=== PATIENT | female | born 1985 | race Caucasian/White ===

== ENCOUNTER → 2019-12-11 10:35 | Outpatient (BNVA) | payer MEDICAID, SELFPAY | PROVIDERS: Family Provider Family Medicine; PCP Family Medicine; Visit Provider Nurse Practitioner | DX: F33.1 Major depressive disorder, recurrent, moderate (principal); F41.1 Generalized anxiety disorder; F43.12 Post-traumatic stress disorder, chronic; G47.10 Hypersomnia, unspecified | CPT/HCPCS: 99214; 99215 ==

== ENCOUNTER → 2019-12-30 10:35 | Outpatient (BNVA) | payer MEDICAID, SELFPAY | PROVIDERS: Family Provider Family Medicine; PCP Family Medicine; Visit Provider Social Worker | DX: F33.1 Major depressive disorder, recurrent, moderate (principal); F41.1 Generalized anxiety disorder; F43.12 Post-traumatic stress disorder, chronic | CPT/HCPCS: 90834 ==

== ENCOUNTER 2019-12-30 12:01 | Inpatient (IN) | payer MEDICAID, SELFPAY ==
[2019-12-30 12:15] VITALS: BP 137/95; PULSE 102; RESP 20; TEMP 36.6; O2SAT 97; BMI 34.9
[2019-12-30 12:23] VITALS: O2SAT 98
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
--- NOTE | 2019-12-30 14:47 | PC.NURSE ---
psychiatrist (francesco) in room to evaluate pt
[2019-12-30 15:29] LABS: Basophils # 0.1 10^3/uL (0.0-0.1); Basophils % 0.4 %; Eosinophils # 0.1 10^3/uL (0.0-0.8); Eosinophils % 0.5 %; Hematocrit 48.7 % (37.0-47.0); Hemoglobin 15.5 g/dL (11.5-15.3); Lymphocytes # 2.8 10^3/uL (0.8-4.8); Lymphocytes % 19.7 %; Mean Corpuscular HGB Conc 31.8 g/dL (30.0-36.0); Mean Corpuscular Hemoglobin 26.9 pg (28.0-34.0); Mean Corpuscular Volume 84.4 fL (81-99); Mean Platelet Volume 9.8 fL (7.4-10.4); Monocytes # 0.6 10^3/uL (0.2-0.9); Monocytes % 4.1 %; Neutrophils # 10.6 10^3/uL (1.8-7.7); Neutrophils % 74.9 %; Nucleated Red Blood Cells % 0 %; Platelet Count 413 10^3/cmm (130-400); Red Blood Count 5.77 10^6/uL (4.1-5.3); Red Cell Distribution Width 15.5 % (12.1-15.1); White Blood Count 14.2 10^3/uL (4.0-10.0)
[2019-12-30 15:45] LABS: HCG Qualitative Urine. Negative (Negative)
[2019-12-30 15:46] LABS: Alanine Aminotransferase 21 U/L (0-33); Albumin Level 4.7 g/dL (3.5-5.2); Alkaline Phosphatase 82 IU/L (35-105); Anion Gap 16.5 (5-19); Aspartate Amino Transferase 24 U/L (0-32); Blood Urea Nitrogen 10 mg/dL (6-20); Calcium 10.6 mg/dL (8.5-10.5); Carbon Dioxide 28 mmol/L (22-29); Chloride 96 mmol/L (98-107); Globulin 4.1 g/dL (1.3-4.6); Glomerular Filtration Rate 62.7 mL/min (90-130); Glucose 138 mg/dL (74-109); Potassium 3.5 mmol/L (3.5-5.1); Sodium 137 mmol/L (136-145); Total Bilirubin 0.4 mg/dL (0.15-1.2); Total Protein 8.8 g/dL (6.6-8.7)
[2019-12-30 16:02] LABS: Acetaminophen < 5.0 ug/mL (10-30); Alcohol Level < 10 mg/dL (0-10); Salicylate < 0.3 mg/dL (3-10)
[2019-12-30 16:14] LABS: Amphetamines Screen Urine Negative (Negative); Barbiturates Screen Urine Negative (Negative); Benzodiazepines Screen Urine Negative (Negative); Cocaine Screen Urine Negative (Negative); Opiate Screen Urine Negative (Negative); PCP Screen Urine Negative (Negative); THC Screen Urine Negative (Negative)
[2019-12-30 16:23] VITALS: BP 134/92; PULSE 103; RESP 20; TEMP 36.8; O2SAT 97
[2019-12-30] MEDS: acetaminophen 325 mg Tablet 650 MG PO (17:42)
[2019-12-30] MEDS: trazodone 50 mg Tablet PO (21:01)
[2019-12-30 21:14] VITALS: RESP 18; O2SAT 96
[2019-12-30 21:16] VITALS: BP 118/77; PULSE 68; RESP 18; TEMP 36.5; O2SAT 97
[2019-12-31 00:59] VITALS: RESP 18; O2SAT 97
[2019-12-31 06:00] VITALS: BP 113/79; PULSE 78; RESP 19; TEMP 36.4; O2SAT 96
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
[2019-12-31 13:47] VITALS: BP 118/76; PULSE 82; RESP 18; TEMP 36.9; O2SAT 96
[2019-12-31] MEDS: lamoTRIgine 100 mg Tablet PO (17:44)
[2019-12-31] MEDS: ARIPiprazole 10 mg Tablet PO (17:44)
[2019-12-31] MEDS: fluoxetine 20 mg Capsule PO (20:33)
[2019-12-31] MEDS: trazodone 50 mg Tablet PO (20:33)
[2019-12-31 22:00] VITALS: BP 134/90; PULSE 76; RESP 19; TEMP 36.7; O2SAT 100
[2019-12-31 23:16] VITALS: RESP 19; O2SAT 98
[2020-01-01 06:00] VITALS: BP 125/85; PULSE 82; RESP 20; TEMP 36.7; O2SAT 99
[2020-01-01] MEDS: pantoprazole DR 40 mg Tablet PO (09:17)
[2020-01-01] MEDS: fluoxetine 20 mg Capsule PO ×2 (09:17→14:21)
[2020-01-01] MEDS: ARIPiprazole 10 mg Tablet PO (09:17)
[2020-01-01] MEDS: lamoTRIgine 100 mg Tablet PO (09:17)
[2020-01-01 14:00] VITALS: BP 131/82; PULSE 75; RESP 18; TEMP 36.7; O2SAT 98
--- NOTE | 2020-01-01 14:53 | P.DS_ITS ---
Diagnoses at Discharge Discharge Diagnosis (1) Depression: Status: Acute (2) Post-traumatic stress disorder, chronic: Status: Acute (3) Generalized anxiety disorder: Status: Acute (4) Major depressive disorder, recurrent, moderate: Status: Acute Reason for Visit Reason for Visit: Reason For Visit: DEPRESION Brief History: HPI NPU History of Present Illness Savana Grady is a 34 year old female who presented today after presenting to the emergency room with concerns that her medication wasn't working as well as she did like and some very limited thoughts to kill herself and thoughts to kill a person who was squatting on her property. She had been seen by providers at [facility] and/or talked on the phone with and was referred to the emergency room. She was transferred to the neuropsychiatric unit with a desire to make some changes in medication. We discussed the risks benefits and alternatives of increasing her Abilify which had been increased from 2 mg daily to 4 mg by mouth every morning, and she understood and agreed to proceed with an increase in the dose. Additionally she is calm to understand one of her major stressors is her . She was doing okay on the unit but then found herself very anxious in connection with him coming to visit. When that was derailed by some issues going on at home she felt immediately better. She reports a long history of marriage to this but struggles from difficulties with him being controlling per her report. She has been in treatment for years reporting that she isn't adherent to treatment but endorsing that she has times where she seems to need changes in the medication they occur and somewhat regular intervals and AV this is this time. We did discuss the fact that she was not on a higher dose of Abilify and so increasing to 10 mg does not constitute the medication becoming ineffective. She reports low mood, hopelessness, helplessness and worthlessness, not finding nayana in things she normally enjoys and lots of irritability. Psychiatric history: As above. Substance abuse history: She denies significant substance abuse issues. Family history: She endorses some issues in her biological family with mental health, she endorses some issues of addiction but denies any suicide completions or attempts that she is aware of. Developmental history: She denies any significant issues with her mother is or delivery of her. She reports The walk-in documented developmental milestones on time. She denies significant speech therapy, large or emotional support or special education classes. Psychosocial history: She reports that she has been to her current for some time but there've been multiple episodes where she is needed to get away. She endorses that some of this is related to his controlling nature. She reports that he can also be hyperreligious when it suits him. She reports that many times he will take issue with her drinking or doing something, but not feel it has any spiritual or righteous impact when he does it. She reports that they lived together some of the time and she retreats to another residence other times when his overbearing nature is overwhelming. Legal history: None reported. Hospital Course Hospital Course Savana presented to the emergency room reporting thoughts to kill herself and thus to kill a person who had been squatting in her garage. She was admitted to the neuro psych unit and quickly acclimated to the individual, group and milieu therapies provided. Her medications were continued and her Abilify was increased to 10 mg. She responded quite well to the changes. During hospitalization she had routine laboratory studies which were within normal limits except for a few outliers. Additionally she had a general medical evaluation which was also within normal limits and revealed no new acute processes. Discharge Summary At the time of discharge she denied all lethality, her mood and anxiety had improved, she denied any psychosis and endorsed the plan to follow-up with outpatient services to which she had been referred. She was evaluated and deemed to be absent credible lethality and she had gotten the maximum benefit from the inpatient hospitalization so she was discharged. Involuntary Hold Information 96 Hour Hold: 96 Hour Involuntary Admission: No Mental Status Exam MSE Comments: This is an obese white female with adequate dress, grooming and eye contact. No abnormal movements except for mild psychomotor retardation. Cooperative with exam in no acute distress. Speech was more normal rate and volume. Mood described as much better, affect congruent. Thought process organized. Thought content: Patient denied any suicidal or homicidal ideations, there are no delusions reported are noted, she denied any auditory or visual hallucinations. Attention and concentration were intact and memory appeared reliable but none were formally tested. She is alert and oriented ?3. Insight and judgment is fair and improving. Discharge Data Vitals: Last Vital Signs Temp 98.0 F 01/01/20 14:00 Pulse 75 01/01/20 14:00 Resp 18 01/01/20 14:00 BP 131/82 01/01/20 14:00 Pulse Ox 98 01/01/20 14:00 Discharge Plan Discharge Patient Disposition: Home, Self-Care Condition: Stable Prescriptions: Continued multivitamin [Daily Multi-Vitamin] Tablet 1 tab PO DAILY RF: 0 atorvastatin 10 mg tablet 10 mg PO DAILY RF: 0 hydrochlorothiazide 12.5 mg capsule 12.5 mg PO DAILY RF: 0 eplerenone 50 mg tablet 50 mg PO DAILY RF: 0 pantoprazole 40 mg tablet,delayed release (DR/EC) 40 mg PO DAILY RF: 0 lamotrigine [Lamictal] 100 mg tablet 100 mg PO BID Qty: 60 RF: 2 Discontinued aripiprazole [Abilify] 5 mg tablet 5 mg PO DAILY Qty: 30 RF: 2 No Action hydroxyzine HCl 25 mg tablet 25 mg PO TID PRN (Reason: anxiety) Qty: 90 RF: 1 fluoxetine [Prozac] 40 mg capsule 80 mg PO DAILY Qty: 60 RF: 1 aripiprazole 10 mg tablet 10 mg PO DAILY 30 Days Qty: 30 RF: 1 Discharge Orders: Discharge Order (Routine); Ordered 01/01/20 Ordered By: Colt Abreu Referrals: Gabby Ndiaye PMHNP [Staff Physician] - 03/04/20 11:30 am Deanna Ramirez MSW, REFRIGERATED CARGO CLERK [Referring] - 01/08/20 9:00 am Branden Staples MD [Primary Care Provider] - Discharge Diet: Regular Discharge Activity: Resume usual activity Patient Instructions: Stress (DC), Depression (DC) Activity Restrictions/Additional Instructions: Currently, you do have scheduled appointments at [facility] ([facility]). If you have any needs that come up before your scheduled appointments at [facility], you may go during the walk-in hours 7:30 a.m.-2:30 p.m. Monday through Monday at [facility]. [address] [address] A referral has been requested from the [facility] dental scheduler Pippa Campos for case management at [facility]. Be sure to check on that referral by January 08, if needed. Discharge Date/Time: 01/01/20 15:11 Discharge Attestations NPU Time Spent in Discharge Care*: less than 30 min Specific Discharge Activities: Specific discharge activities: educating patient, discussing with sample case porter/social workers/dc planners, documenting/other paperwork and evaluating patient/reviewing data Coding Level of Care Code Acute Byproducts Pump Operator for Sandra Fwd Diagnoses Depression F32.9 Post-traumatic stress disorder, chronic F43.12 Generalized anxiety disorder F41.1 Major depressive disorder, recurrent, moderate F33.1
[2020-01-01 14:55] VITALS: BP 131/82; PULSE 75; RESP 18; TEMP 36.7; O2SAT 98
== END 2020-01-01 15:11 | disposition home or self-care (01) | DRG 880 ==
LOC: NP 15:28 → ER 17:12
PROVIDERS: Admitting Provider Psychiatry & Neurology Psychiatry; Emergency Provider Emergency Medicine; Family Provider Family Medicine; PCP Family Medicine; Visit Provider Psychiatry & Neurology Psychiatry
DX: F41.1 Generalized anxiety disorder (principal); F33.1 Major depressive disorder, recurrent, moderate; G47.10 Hypersomnia, unspecified; F43.12 Post-traumatic stress disorder, chronic
CPT/HCPCS: 12345; 80053; 80307; 81025; 85025; 99284; A9270

== ENCOUNTER 2019-12-30 15:00 | Emergency (ER) | payer MEDICAID, SELFPAY | END 2019-12-30 15:56 | disposition admitted as inpatient to this hospital (09) | LOC: ER 01-16 10:02 | PROVIDERS: Emergency Provider Emergency Medicine; Family Provider Family Medicine; PCP Family Medicine | DX: F41.9 Anxiety disorder, unspecified (principal); F43.9 Reaction to severe stress, unspecified; F32.9 Major depressive disorder, single episode, unspecified; F43.10 Post-traumatic stress disorder, unspecified | CPT/HCPCS: 80053; 80307; 81025; 85025; 99284; 99285; A9270 ==

== ENCOUNTER → 2020-01-08 08:44 | Outpatient (BNVA) | payer MEDICAID, SELFPAY | PROVIDERS: Family Provider Family Medicine; PCP Family Medicine; Visit Provider Social Worker | DX: F33.1 Major depressive disorder, recurrent, moderate (principal); F41.1 Generalized anxiety disorder; F43.12 Post-traumatic stress disorder, chronic | CPT/HCPCS: 90834 ==

== ENCOUNTER → 2020-01-16 10:47 | Outpatient (BNVA) | payer MEDICAID, SELFPAY | PROVIDERS: Family Provider Family Medicine; PCP Family Medicine; Visit Provider Nurse Practitioner | DX: F33.1 Major depressive disorder, recurrent, moderate (principal); F41.1 Generalized anxiety disorder; F43.12 Post-traumatic stress disorder, chronic | CPT/HCPCS: 99214 ==

== ENCOUNTER → 2020-02-14 07:37 | Outpatient (BNVA) | payer MEDICAID, SELFPAY | PROVIDERS: Family Provider Family Medicine; PCP Family Medicine; Visit Provider Nurse Practitioner | DX: F43.12 Post-traumatic stress disorder, chronic (principal); F41.1 Generalized anxiety disorder; F33.1 Major depressive disorder, recurrent, moderate | CPT/HCPCS: 99214 ==

== ENCOUNTER 2020-02-14 11:29 | Outpatient (CLI) | payer MEDICAID, SELFPAY ==
[2020-02-14 11:55] LABS: Basophils # 0.1 10^3/uL (0.0-0.1); Basophils % 0.7 %; Eosinophils # 0.3 10^3/uL (0.0-0.8); Eosinophils % 3.2 %; Hematocrit 45.9 % (37.0-47.0); Hemoglobin 14.4 g/dL (11.5-15.3); Lymphocytes # 2.9 10^3/uL (0.8-4.8); Lymphocytes % 27.5 %; Mean Corpuscular HGB Conc 31.4 g/dL (30.0-36.0); Mean Corpuscular Volume 89.1 fL (81-99); Mean Platelet Volume 8.9 fL (7.4-10.4); Monocytes # 0.7 10^3/uL (0.2-0.9); Neutrophils # 6.3 10^3/uL (1.8-7.7); Neutrophils % 60.6 %; Nucleated Red Blood Cells % 0 %; Platelet Count 416 10^3/cmm (130-400); Red Blood Count 5.15 10^6/uL (4.1-5.3); Red Cell Distribution Width 15.8 % (12.1-15.1); White Blood Count 10.4 10^3/uL (4.0-10.0)
[2020-02-14 12:50] LABS: Folate Level 9.4 ng/mL (4.8-37.3)
[2020-02-14 12:51] LABS: Alanine Aminotransferase 24 U/L (0-33); Albumin Level 4.1 g/dL (3.5-5.2); Alkaline Phosphatase 57 IU/L (35-105); Anion Gap 12.5 (5-19); Aspartate Amino Transferase 16 U/L (0-32); Blood Urea Nitrogen 12 mg/dL (6-20); Carbon Dioxide 33 mmol/L (22-29); Chloride 95 mmol/L (98-107); Chol HDL Ratio 5.98 mg/dL (0.0-4.40); Cholesterol 299 mg/dL (0-200); Globulin 3.4 g/dL (1.3-4.6); Glomerular Filtration Rate 81.2 mL/min (90-130); Glucose 100 mg/dL (65-115); HDL Cholesterol 50 mg/dL (60-100); Iron 56 ug/dL (37-145); LDL Cholesterol Calculated 171 mg/dL (50-129); LDL HDL Ratio 3.42 RATIO (0.00-3.22); Magnesium 2.2 mg/dL (1.7-2.3); Osmolality Calculated 278 mOsm/kg (285-295); Percent Saturation 13.5 % (20-50); Phosphorus 3.6 mg/dL (2.5-4.5); Potassium 4.5 mmol/L (3.5-5.1); Sodium 136 mmol/L (136-145); Thyroid Stimulating Hormone 0.88 uIU/mL (0.27-4.20); Total Bilirubin 0.2 mg/dL (0.15-1.2); Total Iron Binding Capacity 412 mcg/dl; Total Protein 7.5 g/dL (6.6-8.7); Triglycerides 392 mg/dL (0-150); Unsaturated Iron Binding 356 ug/dL (112-347); Vitamin B12 582 pg/mL (232-1245)
[2020-02-14 13:06] LABS: Parathyroid Hormone 30.5 pg/mL (15-65)
[2020-02-14 13:07] LABS: Estmated Average Glucose 117; Hemoglobin A1C 5.7 % (4.0-6.0)
== END 2020-02-14 11:30 | disposition home or self-care (01) ==
LOC: LAB 11:32
PROVIDERS: Family Provider Family Medicine; PCP Family Medicine; Visit Provider Surgery
DX: E66.9 Obesity, unspecified (principal)
CPT/HCPCS: 36415; 80053; 80061; 82248; 82310; 82607; 82746; 83036; 83540; 83550; 83735; 83970; 84100; 84443; 85025

== ENCOUNTER → 2020-02-25 15:16 | Outpatient (BNVA) | payer MEDICAID, SELFPAY | PROVIDERS: Family Provider Family Medicine; PCP Family Medicine; Visit Provider Social Worker | DX: F43.12 Post-traumatic stress disorder, chronic (principal); F41.1 Generalized anxiety disorder; F33.1 Major depressive disorder, recurrent, moderate | CPT/HCPCS: 90832 ==

== ENCOUNTER → 2020-03-10 15:38 | Outpatient (BNVA) | payer MEDICAID, SELFPAY | PROVIDERS: Family Provider Family Medicine; PCP Family Medicine; Visit Provider Social Worker | DX: F33.1 Major depressive disorder, recurrent, moderate (principal); F41.1 Generalized anxiety disorder; F43.12 Post-traumatic stress disorder, chronic | CPT/HCPCS: 90834 ==

== ENCOUNTER → 2020-03-20 08:45 | Outpatient (BNVA) | payer MEDICAID, SELFPAY | PROVIDERS: Family Provider Family Medicine; PCP Family Medicine; Visit Provider Nurse Practitioner | DX: F33.1 Major depressive disorder, recurrent, moderate (principal); F41.1 Generalized anxiety disorder; F43.12 Post-traumatic stress disorder, chronic | CPT/HCPCS: 99213 ==

== ENCOUNTER → 2020-03-23 08:24 | Outpatient (BNVA) | payer MEDICAID, SELFPAY | PROVIDERS: Family Provider Family Medicine; PCP Family Medicine; Visit Provider Social Worker | DX: F33.1 Major depressive disorder, recurrent, moderate (principal); F41.1 Generalized anxiety disorder; F43.12 Post-traumatic stress disorder, chronic | CPT/HCPCS: 90834 ==

== ENCOUNTER → 2020-05-04 08:25 | Outpatient (BNVA) | payer MEDICAID, SELFPAY | PROVIDERS: Family Provider Family Medicine; PCP Family Medicine; Visit Provider Social Worker | DX: F32.9 Major depressive disorder, single episode, unspecified (principal); F43.12 Post-traumatic stress disorder, chronic; F41.1 Generalized anxiety disorder; F33.1 Major depressive disorder, recurrent, moderate | CPT/HCPCS: 90832; 90834 ==

== ENCOUNTER → 2020-05-11 07:34 | Outpatient (BNVA) | payer MEDICAID, SELFPAY | PROVIDERS: Family Provider Family Medicine; PCP Family Medicine; Visit Provider Nurse Practitioner | DX: F33.1 Major depressive disorder, recurrent, moderate (principal); F41.1 Generalized anxiety disorder; F43.12 Post-traumatic stress disorder, chronic | CPT/HCPCS: 99214 ==

== ENCOUNTER → 2020-06-15 08:04 | Outpatient (BNVA) | payer MEDICAID, SELFPAY | PROVIDERS: Family Provider Family Medicine; PCP Family Medicine; Visit Provider Counselor Professional | DX: F33.1 Major depressive disorder, recurrent, moderate (principal); F41.1 Generalized anxiety disorder; F43.12 Post-traumatic stress disorder, chronic | CPT/HCPCS: 90834 ==

== ENCOUNTER 2020-06-17 10:38 | Outpatient (CLI) | payer MEDICAID, SELFPAY ==
--- NOTE | 2020-06-17 10:42 | MM_ITS ---
WS: [id number] BILATERAL DIGITAL DIAGNOSTIC MAMMOGRAM MAMMOGRAPHY WITH CAD CLINICAL INFORMATION: PAINFUL LUMPY LT BREAST COMPARISON: None. TECHNIQUE: Bilateral CC, MLO, and ML views. FINDINGS: Fatty replaced breasts bilaterally. Punctate calcifications. Tiny lucent centered calcifications. No suspicious focal mass, asymmetry, calcifications, or architectural distortion. Ultrasound is pendi ng ULTRASOUND BREAST LEFT TECHNIQUE: Ultrasound left breast focused area of concern. CLINICAL INFORMATION: PAINFUL LUMPY LT BREAST COMPARISON: None. FINDINGS: Ultrasound left breast area of concern Ultrasound left breast 9-12:00 position. Normal underlying breast tissue. No lesions to target for bi opsy. No cystic or solid lesions. MM/[place] [id number] IMPRESSION: BI-RADS: 2-Benign FOLLOW UP: Age 38 Annual screening mammography age 38
== END 2020-06-17 10:39 | disposition home or self-care (01) ==
LOC: RADSHAW 10:40
PROVIDERS: PCP Family Medicine; Visit Provider Family Medicine
DX: N64.4 Mastodynia (principal); N63.20 Unspecified lump in the left breast, unspecified quadrant
CPT/HCPCS: 76642; 77066

== ENCOUNTER → 2020-06-24 07:35 | Outpatient (BNVA) | payer MEDICAID, SELFPAY | PROVIDERS: PCP Family Medicine; Visit Provider Nurse Practitioner | DX: F33.1 Major depressive disorder, recurrent, moderate (principal); F41.1 Generalized anxiety disorder; F43.12 Post-traumatic stress disorder, chronic | CPT/HCPCS: 99214 ==

== ENCOUNTER → 2020-07-22 07:50 | Outpatient (BNVA) | payer MEDICAID, SELFPAY | PROVIDERS: Family Provider Family Medicine; PCP Family Medicine; Visit Provider Nurse Practitioner | DX: F33.1 Major depressive disorder, recurrent, moderate (principal); F41.1 Generalized anxiety disorder; F43.12 Post-traumatic stress disorder, chronic | CPT/HCPCS: 99214 ==

== ENCOUNTER → 2020-07-27 08:20 | Outpatient (BNVA) | payer MEDICAID, SELFPAY | PROVIDERS: Family Provider Family Medicine; PCP Family Medicine; Visit Provider Counselor Professional | DX: F33.1 Major depressive disorder, recurrent, moderate (principal); F41.1 Generalized anxiety disorder; F43.12 Post-traumatic stress disorder, chronic; F60.3 Borderline personality disorder | CPT/HCPCS: 90834 ==

== ENCOUNTER 2020-08-06 06:54 | Outpatient (CLI) | payer MEDICAID, SELFPAY ==
--- NOTE | 2020-08-06 07:35 | US_ITS ---
WS: [id number] Complete ABDOMINAL ULTRASOUND HISTORY: CYST ON SPLEEN COMPARISON: 02/21/2017 Liver: 18.7 cm in length. Moderately enlarged liver with hepatic steatosis and coarsened echotexture. No mass or bile duct dilatation. Gallbladder: Normally distended with no gallstones, wall thickening or pericholecystic fluid. Gallbladder wall thickness: 0.2 cm. Pancreas: Tail of the pancreas is not visualized. Head and body are negative. CBD: 0.5 cm. Right kidney: 11.2 cm x 5.9 cm x 4.9 cm. No mass, cortical thickening or hydronephrosis. Left kidney: 11.2 cm x 5.4 cm x 5.6 cm. No mass, cortical thickening or hydronephrosis. Spleen: Normal size spleen. Abdominal aorta and IVC are within normal limits. No ascites. US/US abdomen complete* [id number] IMPRESSION: 1. Moderate hepatomegaly and hepatic steatosis, similar to prior studies. 2. Normal gallbladder.
== END 2020-08-06 06:55 | disposition home or self-care (01) ==
LOC: RAD 06:55
PROVIDERS: PCP Family Medicine; Visit Provider Surgery
DX: D73.4 Cyst of spleen (principal); R16.0 Hepatomegaly, not elsewhere classified; K76.0 Fatty (change of) liver, not elsewhere classified
CPT/HCPCS: 76700

== ENCOUNTER 2020-09-03 09:55 | Outpatient (CLI) | payer MEDICAID, SELFPAY ==
[2020-09-03 10:43] LABS: Basophils # 0.1 10^3/uL (0.0-0.1); Basophils % 0.5 %; Eosinophils # 0.1 10^3/uL (0.0-0.8); Eosinophils % 1.3 %; Hemoglobin 14.6 g/dL (11.5-15.3); Lymphocytes # 3.2 10^3/uL (0.8-4.8); Lymphocytes % 29.8 %; Mean Corpuscular HGB Conc 31.1 g/dL (30.0-36.0); Mean Corpuscular Hemoglobin 27.9 pg (28.0-34.0); Mean Corpuscular Volume 89.7 fL (81-99); Mean Platelet Volume 8.4 fL (7.4-10.4); Monocytes # 0.9 10^3/uL (0.2-0.9); Monocytes % 7.9 %; Neutrophils # 6.42 10^3/uL (1.8-7.7); Nucleated Red Blood Cells % 0 %; Platelet Count 379 10^3/cmm (130-400); Red Blood Count 5.24 10^6/uL (4.1-5.3); Red Cell Distribution Width 15.6 % (12.1-15.1); White Blood Count 10.7 10^3/uL (4.0-10.0)
[2020-09-03 11:23] LABS: Estmated Average Glucose 131; Hemoglobin A1C 6.2 % (4.0-6.0)
[2020-09-03 11:28] LABS: Folate Level 16.1 ng/mL (4.8-37.3)
[2020-09-03 11:32] LABS: Alanine Aminotransferase 24 U/L (0-33); Albumin Level 4.2 g/dL (3.5-5.2); Alkaline Phosphatase 39 IU/L (35-105); Anion Gap 14.7 (5-19); Aspartate Amino Transferase 30 U/L (0-32); Blood Urea Nitrogen 16 mg/dL (6-20); Calcium 9.4 mg/dL (8.5-10.5); Carbon Dioxide 26 mmol/L (22-29); Chloride 100 mmol/L (98-107); Globulin 3.3 g/dL (1.3-4.6); Glomerular Filtration Rate 94.2 mL/min (90-130); Glucose 88 mg/dL (65-115); Iron 63 ug/dL (37-145); Magnesium 2.1 mg/dL (1.7-2.3); Osmolality Calculated 283 mOsm/kg (285-295); Phosphorus 4.3 mg/dL (2.5-4.5); Potassium 4.7 mmol/L (3.5-5.1); Sodium 136 mmol/L (136-145); Thyroid Stimulating Hormone 0.87 uIU/mL (0.27-4.20); Total Bilirubin 0.2 mg/dL (0.15-1.2); Total Protein 7.5 g/dL (6.6-8.7); Vitamin B12 589 pg/mL (232-1245)
== END 2020-09-03 09:56 | disposition home or self-care (01) ==
LOC: LAB 10:00
PROVIDERS: PCP Family Medicine; Visit Provider Surgery
DX: E88.81 Metabolic syndrome and other insulin resistance (principal)
CPT/HCPCS: 80053; 82607; 82746; 83036; 83540; 83735; 84100; 84443; 85025

== ENCOUNTER → 2020-09-07 09:18 | Outpatient (BNVA) | payer MEDICAID, SELFPAY | PROVIDERS: PCP Family Medicine; Visit Provider Counselor Professional | DX: F60.3 Borderline personality disorder (principal); F33.1 Major depressive disorder, recurrent, moderate; F41.1 Generalized anxiety disorder; F43.12 Post-traumatic stress disorder, chronic | CPT/HCPCS: 90834 ==

== ENCOUNTER 2020-09-09 08:06 | Outpatient (CLI) | payer MEDICAID, SELFPAY ==
--- NOTE | 2020-09-09 08:30 | FL_ITS ---
WS: [id number] UPPER GI WITH AIR FLUOROSCOPY TIME: 2.8 minutes CLINICAL INFORMATION: R10.9 Unspecified abdominal pain COMPARISON: None. FINDINGS: Swallowing: Normal. Esophagus: Normal caliber. Mild dysmotility with normal emptying. No high-grade stenosis or obstructi on. Reflux is visualized into the distal esophagus on the upright and supine imaging. Gastroesophageal reflux: Present Stomach: Postoperative changes gastric bypass. No evidence of gastric outlet obstruction. Normal doub le contrast stomach. Normal emptying. Duodenum: Proximal duodenum is normal. Other findings: None. FL/FL upper GI w air* [id number] IMPRESSION: 1. Status post gastric bypass. Normal double contrast stomach with normal rapi d emptying. 2. Proximal duodenum is normal. 3. Mild esophageal dysmotility with reflux visualized into the distal esophagu s on the upright and supine imaging. 4. No significant hiatal hernia.
== END 2020-09-09 08:07 | disposition home or self-care (01) ==
PROVIDERS: PCP Family Medicine; Visit Provider Surgery
DX: R10.9 Unspecified abdominal pain (principal); K21.9 Gastro-esophageal reflux disease without esophagitis
CPT/HCPCS: 74246

== ENCOUNTER → 2020-09-14 09:04 | Outpatient (BNVA) | payer MEDICAID, SELFPAY | PROVIDERS: PCP Family Medicine; Visit Provider Counselor Professional | DX: F33.1 Major depressive disorder, recurrent, moderate (principal); F41.1 Generalized anxiety disorder; F43.12 Post-traumatic stress disorder, chronic; F60.3 Borderline personality disorder | CPT/HCPCS: 90834 ==

== ENCOUNTER → 2020-09-15 07:35 | Outpatient (BNVA) | payer MEDICAID, SELFPAY | PROVIDERS: PCP Family Medicine; Visit Provider Nurse Practitioner | DX: F33.1 Major depressive disorder, recurrent, moderate (principal); F41.1 Generalized anxiety disorder; F43.12 Post-traumatic stress disorder, chronic | CPT/HCPCS: 99214 ==

== ENCOUNTER 2020-09-16 10:46 | Outpatient (CLI) | payer MEDICAID, SELFPAY ==
[2020-09-16 10:51] VITALS: BMI 43.5
--- NOTE | 2020-09-16 10:53 | ECG_ITS ---
[facility] Test Date: 2020-09-16 Pat Name: Savana Grady Department: Room: Gender: Female Vice President Network: : 1985 Requested By: Branden Carpenter Order Number: [id number] Farhana MD: Kingston Tesfaye M.D. Interpretive Statements NAME OF STUDY: TREADMILL STRESS TEST INDICATION: Atypical Chest Pain PROCEDURE: At the baseline, the patient's blood pressure was with a heart rate of. The baseline electrocardiogram showed normal sinus rhythm with poor R wave progression. No significant ST-T changes. The patient exercised for 2 minutes and 11 seconds on a standard Luke protocol. Patient attained a maximum heart rate of 153 beats per minute(83% of the maximum predicted heart rate) with a blood pressure at the peak exercise of 159/86 mm Hg. The EKG at the peak exercise revealed no significant changes. Because of the artifacts, the EKG is difficult to interpret. Patient did not have any chest pain or any significant cardiac arrhythmias with the exercise During the recovery phase, there were no new changes. Blood pressure at the end of the recovery phase was 134/96 mm Hg with a heart rate of 100 per minute. CONCLUSION: 1. Normal EKG response to treadmill exercise 2. No exercise-induced chest pain or cardiac arrhythmia 3. Severely impaired exercise tolerance, attained a maximum of 4.6 METs Electronically Signed On 09-17-2020 9:01:41 CDT by Kingston Tesfaye M.D. [email or web address]
--- NOTE | 2020-09-16 11:34 | SUR.PREOP ---
Patient reports no pain or discomfort prior to the start of the procedure.
[2020-09-16 12:01] VITALS: BP 134/96; PULSE 99
== END 2020-09-16 10:47 | disposition home or self-care (01) ==
LOC: CDL 10:47
PROVIDERS: PCP Family Medicine; Visit Provider Family Medicine
DX: R07.89 Other chest pain (principal)
CPT/HCPCS: 93017

== ENCOUNTER → 2020-10-16 08:11 | Outpatient (BNVA) | payer MEDICAID, SELFPAY | PROVIDERS: PCP Family Medicine; Visit Provider Counselor Professional | DX: F33.1 Major depressive disorder, recurrent, moderate (principal); F41.1 Generalized anxiety disorder; F43.12 Post-traumatic stress disorder, chronic; F60.3 Borderline personality disorder | CPT/HCPCS: 90834 ==

== ENCOUNTER → 2020-10-26 07:45 | Outpatient (BNVA) | payer MEDICAID, SELFPAY | PROVIDERS: PCP Family Medicine; Visit Provider Nurse Practitioner | DX: F33.1 Major depressive disorder, recurrent, moderate (principal); F41.1 Generalized anxiety disorder; F43.12 Post-traumatic stress disorder, chronic | CPT/HCPCS: 99214 ==

== ENCOUNTER → 2020-12-03 08:30 | Outpatient (BNVA) | payer MEDICAID, SELFPAY | PROVIDERS: PCP Family Medicine; Visit Provider Counselor Professional | DX: F33.1 Major depressive disorder, recurrent, moderate (principal); F41.1 Generalized anxiety disorder; F43.12 Post-traumatic stress disorder, chronic; F60.3 Borderline personality disorder | CPT/HCPCS: 90834 ==

== ENCOUNTER → 2020-12-17 10:18 | Outpatient (BNVA) | payer MEDICAID, SELFPAY | PROVIDERS: PCP Family Medicine; Visit Provider Nurse Practitioner | DX: F33.1 Major depressive disorder, recurrent, moderate (principal); F41.1 Generalized anxiety disorder; F43.12 Post-traumatic stress disorder, chronic | CPT/HCPCS: 99214 ==

== ENCOUNTER → 2021-01-01 07:42 | Outpatient (BNVA) | payer MEDICAID, SELFPAY | PROVIDERS: PCP Family Medicine; Visit Provider Counselor Professional | DX: F33.1 Major depressive disorder, recurrent, moderate (principal); F41.1 Generalized anxiety disorder; F43.12 Post-traumatic stress disorder, chronic; F60.3 Borderline personality disorder; T74.91XA Unspecified adult maltreatment, confirmed, initial encounter | CPT/HCPCS: 90839 ==

== ENCOUNTER → 2021-01-07 08:48 | Outpatient (BNVA) | payer MEDICAID, SELFPAY | PROVIDERS: PCP Family Medicine; Visit Provider Counselor Professional | DX: F33.1 Major depressive disorder, recurrent, moderate (principal); F41.1 Generalized anxiety disorder; F43.12 Post-traumatic stress disorder, chronic; T74.91XA Unspecified adult maltreatment, confirmed, initial encounter | CPT/HCPCS: 90832 ==

== ENCOUNTER → 2021-01-22 07:45 | Outpatient (BNVA) | payer MEDICAID, SELFPAY | PROVIDERS: PCP Family Medicine; Visit Provider Counselor Professional | DX: F33.1 Major depressive disorder, recurrent, moderate (principal); F41.1 Generalized anxiety disorder; F43.12 Post-traumatic stress disorder, chronic; T74.91XA Unspecified adult maltreatment, confirmed, initial encounter | CPT/HCPCS: 90834 ==

== ENCOUNTER → 2021-01-25 07:58 | Outpatient (BNVA) | payer MEDICAID, SELFPAY | PROVIDERS: PCP Family Medicine; Visit Provider Nurse Practitioner | DX: F33.1 Major depressive disorder, recurrent, moderate (principal); F41.1 Generalized anxiety disorder; F43.12 Post-traumatic stress disorder, chronic | CPT/HCPCS: 99214 ==

== ENCOUNTER → 2021-01-29 07:43 | Outpatient (BNVA) | payer MEDICAID, SELFPAY | PROVIDERS: PCP Family Medicine; Visit Provider Counselor Professional | DX: F33.1 Major depressive disorder, recurrent, moderate (principal); F41.1 Generalized anxiety disorder; F43.12 Post-traumatic stress disorder, chronic; T74.91XA Unspecified adult maltreatment, confirmed, initial encounter | CPT/HCPCS: 90834 ==

== ENCOUNTER → 2021-02-04 07:40 | Outpatient (BNVA) | payer MEDICAID, SELFPAY | PROVIDERS: PCP Family Medicine; Visit Provider Counselor Professional | DX: F33.1 Major depressive disorder, recurrent, moderate (principal); F41.1 Generalized anxiety disorder; F43.12 Post-traumatic stress disorder, chronic; T74.91XA Unspecified adult maltreatment, confirmed, initial encounter | CPT/HCPCS: 90834 ==

== ENCOUNTER → 2021-02-12 07:41 | Outpatient (BNVA) | payer MEDICAID, SELFPAY | PROVIDERS: PCP Family Medicine; Visit Provider Counselor Professional | DX: F33.1 Major depressive disorder, recurrent, moderate (principal); F41.1 Generalized anxiety disorder; F43.12 Post-traumatic stress disorder, chronic; T74.91XA Unspecified adult maltreatment, confirmed, initial encounter | CPT/HCPCS: 90834 ==

== ENCOUNTER → 2021-03-05 14:43 | Outpatient (BNVA) | payer MEDICAID, SELFPAY | PROVIDERS: PCP Family Medicine; Visit Provider Counselor Professional | DX: F33.1 Major depressive disorder, recurrent, moderate (principal); F41.1 Generalized anxiety disorder; F43.12 Post-traumatic stress disorder, chronic; T74.91XA Unspecified adult maltreatment, confirmed, initial encounter | CPT/HCPCS: 90834 ==

== ENCOUNTER → 2021-03-26 08:43 | Outpatient (BNVA) | payer MEDICAID, SELFPAY | PROVIDERS: PCP Family Medicine; Visit Provider Counselor Professional | DX: F33.1 Major depressive disorder, recurrent, moderate (principal); F41.1 Generalized anxiety disorder; F43.12 Post-traumatic stress disorder, chronic; T74.91XA Unspecified adult maltreatment, confirmed, initial encounter | CPT/HCPCS: 90834 ==

== ENCOUNTER → 2021-03-29 09:05 | Outpatient (BNVA) | payer MEDICAID, SELFPAY | PROVIDERS: PCP Family Medicine; Visit Provider Nurse Practitioner | DX: F33.1 Major depressive disorder, recurrent, moderate (principal); F41.1 Generalized anxiety disorder; F43.12 Post-traumatic stress disorder, chronic | CPT/HCPCS: 99214 ==

== ENCOUNTER → 2021-04-08 07:45 | Outpatient (BNVA) | payer MEDICAID, SELFPAY | PROVIDERS: PCP Family Medicine; Visit Provider Counselor Professional | DX: F33.1 Major depressive disorder, recurrent, moderate (principal); F41.1 Generalized anxiety disorder; F43.12 Post-traumatic stress disorder, chronic | CPT/HCPCS: 90791 ==

== ENCOUNTER → 2021-04-19 15:12 | Outpatient (BNVA) | payer MEDICAID, SELFPAY | PROVIDERS: PCP Family Medicine; Visit Provider Surgery | DX: N60.09 Solitary cyst of unspecified breast (principal) | CPT/HCPCS: 88304 ==

== ENCOUNTER → 2021-04-30 08:48 | Outpatient (BNVA) | payer MEDICAID, SELFPAY | PROVIDERS: PCP Family Medicine; Visit Provider Counselor Professional | DX: F33.1 Major depressive disorder, recurrent, moderate (principal); F41.1 Generalized anxiety disorder; F43.12 Post-traumatic stress disorder, chronic | CPT/HCPCS: 90834 ==

== ENCOUNTER → 2021-05-11 13:43 | Outpatient (BNVA) | payer MEDICAID, SELFPAY | PROVIDERS: PCP Family Medicine; Visit Provider Nurse Practitioner | DX: F33.1 Major depressive disorder, recurrent, moderate (principal); F41.1 Generalized anxiety disorder; F43.12 Post-traumatic stress disorder, chronic | CPT/HCPCS: 99214 ==

== ENCOUNTER → 2021-05-14 08:36 | Outpatient (BNVA) | payer MEDICAID, SELFPAY | PROVIDERS: PCP Family Medicine; Visit Provider Counselor Professional | DX: F33.1 Major depressive disorder, recurrent, moderate (principal); F41.1 Generalized anxiety disorder; F43.12 Post-traumatic stress disorder, chronic; T74.91XA Unspecified adult maltreatment, confirmed, initial encounter | CPT/HCPCS: 90834 ==

== ENCOUNTER → 2021-05-20 08:39 | Outpatient (BNVA) | payer MEDICAID, SELFPAY | PROVIDERS: PCP Family Medicine; Visit Provider Counselor Professional | DX: F33.1 Major depressive disorder, recurrent, moderate (principal); F41.1 Generalized anxiety disorder; F43.12 Post-traumatic stress disorder, chronic; T74.91XA Unspecified adult maltreatment, confirmed, initial encounter | CPT/HCPCS: 90832 ==

== ENCOUNTER → 2021-06-03 08:38 | Outpatient (BNVA) | payer MEDICAID, SELFPAY | PROVIDERS: PCP Family Medicine; Visit Provider Counselor Professional | DX: F33.1 Major depressive disorder, recurrent, moderate (principal); F41.1 Generalized anxiety disorder; F43.12 Post-traumatic stress disorder, chronic | CPT/HCPCS: 90834 ==

== ENCOUNTER 2021-06-21 18:13 | Emergency (ER) | payer MEDICAID, SELFPAY ==
[2021-06-21 18:21] VITALS: BP 129/84; PULSE 88; RESP 18; TEMP 37.5; O2SAT 95; BMI 46.6
--- NOTE | 2021-06-21 19:06 | XRR_ITS ---
PROCEDURE INFORMATION: Exam: XR Right Knee Exam date and time: 06/21/2021 7:06 PM Age: 35 years old Clinical indication: Patient HX: Right knee pain, no known injury TECHNIQUE: Imaging protocol: XR Right knee. Views: 3 views. COMPARISON: No relevant prior studies available. FINDINGS: Bones/joints: Normal. Soft tissues: Normal. XR/XR knee RT 3V* [id number] IMPRESSION: No acute findings.
[2021-06-21 19:35] VITALS: PULSE 61
--- NOTE | 2021-06-21 19:46 | ED_ITS ---
HPI - Extremity Problem General: Chief complaint: Extremity Injury, Lower Stated complaint: RIGHT KNEE PAIN Time Seen by Provider: 06/21/21 19:13 History of Present Illness: HPI Narrative: 5-year-old female presents emergency room with complaint of right knee pain she twisted couple of days ago while dragging some brush up a hill she has had pain and difficulty with weightbearing no instability however. She did note a fall or direct blow to the leg. MD Complaint: joint pain Onset (ago): day(s) Pain Consistency: constant Location: right and knee Quality: aching Radiation: none Relieving factors: immobilization and elevation Exacerbating factors: weight bearing and walking Associated symptoms: Deny arthralgias, chest pain, fever(s), myalgias, rash or short of breath Review of Systems Const: Denies: fever(s) ENMT: Denies: throat pain, ear or mastoid pain, nasal discharge or nasal congestion Card: Denies: chest pain Resp: Denies: dyspnea, productive cough or non-productive cough GI: Denies: abdominal pain, nausea, vomiting, hematemesis, coffee ground em esis, diarrhea, constipation, bloating, hematochezia or melena : Denies: flank pain, difficulty voiding, dysuria, urinary frequency or urinary urgency Skin/Breast: Denies: rash PFSH ED PFSH: Medical History Breast cyst Diabetes Generalized anxiety disorder Hypercholesteremia Hypersomnia, unspecified Hypertension Major depressive disorder, recurrent, moderate No pertinent past medical history neghx: thyroid,dvt/pe PCP: Dr. Staples PCOS (polycystic ovarian syndrome) Post-traumatic stress disorder, chronic Surgical History History of cervical cerclage 2006 2007 History of gastric surgery (~2018) Sleeve-- Giurgius Hx of carpal tunnel repair L hand Hx of section (~2007) Hx of dilation and curettage 2002- 2003- Hx of removal of cyst (~03/2021) cyst on L breast Family History Mother Diabetes Hypertension Uterine cancer dx age 30--had hysterectomy Hypercholesteremia Father Hypertension Heart disease Hypercholesteremia Family/Other Breast cancer Maternal aunt Denies family history of Colon cancer Ovarian cancer Clotting disorder Bleeding disorder Thyroid disease Stroke Social History Smoking and tobacco status: never smoked Female Reproductive History: Date of last menstrual period: 12/30/19 Physical Exam Const: COMMON NORMALS: no acute distress GENERAL APPEARANCE: cooperative and comfortable ORIENTATION/CONSCIOUSNESS: Yes awake, Yes oriented to person, Yes oriented to place and Yes oriented to time HENMT: COMMON NORMALS: normocephalic and atraumatic HEAD & SCALP: nor mocephalic and atraumatic Neck/C-Spine: COMMON NORMALS: no JVD Cardio: COMMON NORMALS: no JVD, regular rate, regular rhythm and No murmurs present (Cardio) RATE: regular rate RHYTHM: regular rhythm Extremity: COMMON NORMALS: normal to inspection, capillary refill normal, no clubbing, cyanosis or edema, no calf tenderness and no pedal edema NARRATIVE EXTREMITY EXAM: Right knee moderate joint effusion no instability no ligamentous laxity drawer and Dodie's test negative Neuro: SENSORIUM/ORIENTATION: Yes oriented to person, Yes oriented to place and Yes oriented to time Course Vital Signs: Vital signs: Vital Signs Temperature 99.5 F 06/21/21 18:21 Pulse Rate 61 06/21/21 19:35 Respiratory Rate 18 06/21/21 18:21 Blood Pressure 129/84 06/21/21 18:21 Pulse Oximetry 95 06/21/21 18:21 MDM - Extremity (Nontraumatic) MDM Narrative: Medical decision making narrative: X-ray is unremarkable. Patient declines any NSAIDs because of previous had bariatric surgery use Tylenol topical diclofenac she has been using in the past ice immobilize crutches for nonweightbearing and follow-up with Ortho. Discharge Plan Discharge Patient Disposition: Home Clinical Impression: Right knee sprain Condition: Stable Prescriptions: No Action norethindrone (contraceptive) 0.35 mg tablet 0.35 mg PO DAILY Qty: 84 RF: 3 atorvastatin 40 mg tablet 40 mg PO DAILY RF: 0 pioglitazone 15 mg tablet 15 mg PO DAILY RF: 0 aripiprazole 10 mg tablet 10 mg PO DAILY 30 Days Qty: 30 RF: 1 trazodone 50 mg tablet 50 mg PO .HS PRN (Reason: sleep) Qty: 30 RF: 1 metoprolol succinate 100 mg tablet extended release 24 hr 100 mg PO DAILY RF: 0 aripiprazole [Abilify] 15 mg tablet 15 mg PO DAILY Qty: 30 RF: 1 eplerenone 50 mg tablet 50 mg PO DAILY RF: 0 (DME) Articulating AFO See Rx Instructions .Route .MEDSUPPLY Qty: 1 RF: 0 (DME) Diabetic Shoes See Rx Instructions .Route .MEDSUPPLY Qty: 1 RF: 0 diclofenac sodium [Voltaren] 1 % gel 2 g topical QID Qty: 100 RF: 5 pantoprazole 40 mg tablet,delayed release (DR/EC) 40 mg PO BID 30 Days Qty: 60 RF: 3 buspirone 10 mg tablet 10 mg PO TID Qty: 90 RF: 1 lamotrigine [Lamictal] 100 mg tablet 100 mg PO BID Qty: 60 RF: 1 venlafaxine [Effexor XR] 150 mg capsule,extended release 24hr 150 mg PO DAILY Qty: 30 RF: 1 Discharge Orders: Discharge ED (Routine); Ordered 06/21/21 Ordered By: Francisco Amado Referrals: Branden Staples MD [Primary Care Provider] - Patient Instructions: Opioid Safety Activity Restrictions/Additional Instructions: His management make arrangements for you to see orthopedics Coding Level of Care Code ED Tool And Production Planner for Sandra Chavira
[2021-06-21 20:03] VITALS: BP 147/94; PULSE 81; RESP 18; O2SAT 96
--- NOTE | 2021-06-22 09:35 | DCPLANNER ---
farrowing manager had message to schedule a follow up appointment for patient with ortho. farrowing manager called the ortho clinic, spoke with [facility], gave clinic patients information. farrowing manager was told that patients information would be printed and reviewed. Clinic will call patient with appointment information.
--- NOTE | 2021-06-23 09:12 | DCPLANNER ---
Patient had a follow up appointment scheduled for 06.23.[address] Mancia at [facility] - patient did attend appointment.
== END 2021-06-21 20:04 | disposition home or self-care (01) ==
PROVIDERS: Emergency Provider Family Medicine; PCP Family Medicine
DX: S83.91XA Sprain of unspecified site of right knee, initial encounter (principal); E11.9 Type 2 diabetes mellitus without complications; E78.00 Pure hypercholesterolemia, unspecified; I10 Essential (primary) hypertension; X50.1XXA Overexertion from prolonged static or awkward postures, initial encounter
CPT/HCPCS: 29530; 73562; 99283; E0114

== ENCOUNTER 2021-06-22 06:56 | Outpatient (CLI) | payer MEDICAID, SELFPAY ==
--- NOTE | 2021-06-22 07:08 | MR_ITS ---
WS: [id number] MR OF THE RIGHT FOOT WITHOUT GADOLINIUM ENHANCEMENT. INDICATION: Flat feet. Foot pain. TECHNIQUE: Sagittal PD, sagittal STIR, axial T1 and stir PD and T2 imaging. Coronal PD and T2 imaging with fat saturation technique. FINDINGS: Pes planus. Dorsal and plantar calcaneal spurs. Mild hallux valgus. Normal ankle mortise. N ormal medial and lateral malleolus. Normal talar dome. No evidence of avascular necrosis. Small amoun t of tendinosis in the distal one third Achilles. Normal talocalcaneal articulation. Normal cuboid. T he base of the fifth metatarsal is normal. Normal bone marrow signal in the neck of the talus. Normal talonavicular articulation. Normal tarsal metatarsal joint and metatarsal-phalangeal joints. Normal peroneal longus and brevis. Normal extensor and flexor compartment tendons. Tenosynovitis invo lving the flexor hallucis longus and extensor digitorum longus. IMPRESSION 1. Normal ankle mortise. Normal medial and lateral malleolus. 2. Talar dome is normal. No evidence of avascular necrosis. 3. Pes planus with calcaneal spurring. 4. Small amount of tendinosis in the distal Achilles. 5. Mild hallux valgus. 6. Tenosynovitis involving the flexor hallucis longus and extensor digitorum longus. 7. Normal plantar aponeurosis. 8. No other significant findings. MR/MR foot RT wo con* [id number] IMPRESSION:
== END 2021-06-22 06:57 | disposition home or self-care (01) ==
PROVIDERS: PCP Family Medicine; Visit Provider Podiatrist Foot & Ankle Surgery
DX: M79.671 Pain in right foot (principal); M21.41 Flat foot [pes planus] (acquired), right foot; M21.42 Flat foot [pes planus] (acquired), left foot; M65.871 Other synovitis and tenosynovitis, right ankle and foot; M20.11 Hallux valgus (acquired), right foot; M77.31 Calcaneal spur, right foot
CPT/HCPCS: 73718

== ENCOUNTER → 2021-06-23 13:34 | Outpatient (BNVA) | payer MEDICAID, SELFPAY | PROVIDERS: PCP Family Medicine; Visit Provider Nurse Practitioner | DX: F43.12 Post-traumatic stress disorder, chronic (principal); F41.1 Generalized anxiety disorder; F33.1 Major depressive disorder, recurrent, moderate | CPT/HCPCS: 99214 ==

== ENCOUNTER → 2021-07-08 08:41 | Outpatient (BNVA) | payer MEDICAID, SELFPAY | PROVIDERS: PCP Family Medicine; Visit Provider Counselor Professional | DX: F43.12 Post-traumatic stress disorder, chronic (principal); F33.1 Major depressive disorder, recurrent, moderate; F41.1 Generalized anxiety disorder | CPT/HCPCS: 90834 ==

== ENCOUNTER → 2021-07-22 09:10 | Outpatient (BNVA) | payer MEDICAID, SELFPAY | PROVIDERS: PCP Family Medicine; Visit Provider Counselor Professional | DX: F43.12 Post-traumatic stress disorder, chronic (principal); F41.1 Generalized anxiety disorder; F33.1 Major depressive disorder, recurrent, moderate; T74.91XA Unspecified adult maltreatment, confirmed, initial encounter | CPT/HCPCS: 90834 ==

== ENCOUNTER → 2021-07-29 14:46 | Outpatient (BNVA) | payer MEDICAID, SELFPAY | PROVIDERS: PCP Family Medicine; Visit Provider Nurse Practitioner Psychiatric/Mental Health | DX: F41.1 Generalized anxiety disorder (principal); F43.12 Post-traumatic stress disorder, chronic; F33.1 Major depressive disorder, recurrent, moderate; M79.673 Pain in unspecified foot; Z79.899 Other long term (current) drug therapy; Z03.89 Encounter for observation for other suspected diseases and conditions ruled out | CPT/HCPCS: 99214 ==

== ENCOUNTER 2021-08-03 11:12 | Outpatient (CLI) | payer MEDICAID, SELFPAY ==
--- NOTE | 2021-08-03 11:45 | MR_ITS ---
WS: [id number] MRI RIGHT KNEE NONCONTRAST TECHNIQUE: Axial PD, coronal PD fat sat, coronal PD, sagittal PD, and sagittal PD fat-sat images obta marianned. CLINICAL INFORMATION: S83.91XA - Sprain of unspecified site of right knee, init... COMPARISON: None. FINDINGS: Distal quadriceps and patella tendons are intact. Slightly hypertrophic patella. No significant joint effusion. Normal ACL and PCL. Medial and lateral meniscus are normal in appearance. No acute appeari ng meniscal tears. Normal bone marrow signal in the femoral condyles and tibial plateau. Small amount of fluid and edema along the medial collateral ligament consistent with grade one injury. Normal lateral collateral lig ament. Mild chondromalacia patella worse in the lateral patella facet. Normal medial and lateral patellar re tinaculum. Normal popliteal fossa. MR/MR knee RT wo con* [id number] IMPRESSION: 1. Normal anterior posterior cruciate ligaments. 2. Normal medial lateral meniscus. No acute appearing meniscal tears. 3. Mild chondromalacia patella worse involving the lateral patella facet. 4. Tiny amount of fluid and edema along the medial collateral ligament consist ent with grade one injury. Outbridge grading: grade I: focal areas of hyperintensity with normal contour
== END 2021-08-03 11:13 | disposition home or self-care (01) ==
LOC: RADSHAW 11:15
PROVIDERS: PCP Family Medicine; Visit Provider Orthopaedic Surgery
DX: Z03.89 Encounter for observation for other suspected diseases and conditions ruled out (principal); S83.91XA Sprain of unspecified site of right knee, initial encounter; X58.XXXA Exposure to other specified factors, initial encounter; M22.41 Chondromalacia patellae, right knee; Z79.899 Other long term (current) drug therapy
CPT/HCPCS: 73721; 80061; 81025; 83036

== ENCOUNTER → 2021-08-05 07:47 | Outpatient (BNVA) | payer MEDICAID, SELFPAY | PROVIDERS: PCP Family Medicine; Visit Provider Counselor Professional | DX: F41.1 Generalized anxiety disorder (principal); F43.12 Post-traumatic stress disorder, chronic; F33.1 Major depressive disorder, recurrent, moderate | CPT/HCPCS: 90834 ==

== ENCOUNTER → 2021-08-24 09:27 | Outpatient (BNVA) | payer MEDICAID, SELFPAY | PROVIDERS: PCP Family Medicine; Visit Provider Nurse Practitioner Psychiatric/Mental Health | DX: F41.1 Generalized anxiety disorder (principal); F43.12 Post-traumatic stress disorder, chronic; F33.1 Major depressive disorder, recurrent, moderate | CPT/HCPCS: 99214 ==

== ENCOUNTER → 2021-08-26 11:32 | Outpatient (BNVA) | payer MEDICAID, SELFPAY | PROVIDERS: PCP Family Medicine; Visit Provider Social Worker | DX: F41.1 Generalized anxiety disorder (principal); F43.12 Post-traumatic stress disorder, chronic; F33.1 Major depressive disorder, recurrent, moderate | CPT/HCPCS: 90834 ==

== ENCOUNTER 2021-08-26 16:38 | Emergency (ER) | payer MEDICAID, SELFPAY ==
[2021-08-26 17:32] VITALS: BP 118/81; PULSE 72; RESP 18; TEMP 37.1; O2SAT 99; BMI 45.7
[2021-08-26 19:36] VITALS: BP 117/90; PULSE 70; RESP 16; O2SAT 99
--- NOTE | 2021-08-26 19:44 | W.ED.GENADLT ---
HPI - General Adult General: Chief complaint: General Medical Stated complaint: RECTAL BLEEDING Time Seen by Provider: 08/26/21 19:33 History of Present Illness: HPI narrative: 35-year-old female comes in today with complaints of bleeding from the rectum. Patient states that she has a history of internal hemorrhoids. About 3 years ago she had a colonoscopy due to bleeding in the stool and it was noted that she had internal hemorrhoids at that time. Patient appears well. Patient appears no acute distress. Patient reports episodes of constipation. Patient denies any pain with defecation. Patient appears in no pain at this time. Review of Systems General: Reports: 10 or more systems reviewed and unremarkable except in HPI and below GI: Reports: hematochezia PFSH ED PFSH: Medical History Breast cyst Diabetes Generalized anxiety disorder Hypercholesteremia Hypersomnia, unspecified Hypertension Major depressive disorder, recurrent, moderate No pertinent past medical history neghx: thyroid,dvt/pe PCP: Dr. Staples PCOS (polycystic ovarian syndrome) Post-traumatic stress disorder, chronic Psychiatric care Surgical History History of cervical cerclage 2006 2007 History of gastric surgery (~2018) Sleeve-- Giurgius Hx of carpal tunnel repair L hand Hx of section (~2007) Hx of dilation and curettage 2002- SAB 2003- SAB Hx of removal of cyst (~03/2021) cyst on L breast Family History Mother Diabetes Hypertension Uterine cancer dx age 30--had hysterectomy Hypercholesteremia Father Hypertension Heart disease Hypercholesteremia Family/Other Breast cancer Maternal aunt Denies family history of Colon cancer Ovarian cancer Clotting disorder Bleeding disorder Thyroid disease Stroke Social History Second hand smoke exposure: Yes Female Reproductive History: Date of last menstrual period: 12/30/19 Physical Exam Const: COMMON NORMALS: no acute distress and patient oriented x3 GENERAL APPEARANCE: cooperative HENMT: COMMON NORMALS: normocephalic and Normal external nose present HEAD & SCALP: normal to inspection and normocephalic NOSE: Normal external nose present MOUTH: Normal oral and palatal mucosa present Eye: GENERAL EYE: appearance normal, both eyes and all related structures Neck/C-Spine: COMMON NORMALS: full ROM Chest: COMMONS NORMALS: normal inspection of the chest Resp: COMMON NORMALS: normal respiratory effort EFFORT & INSPECTION: Yes able to speak in complete sentences Cardio: COMMON NORMALS: regular rate and regular rhythm RATE: regular rate RHYTHM: regular rhythm GI: COMMON NORMALS: Soft to palpation and non-tender PALPATION: Yes Soft to palpation RECTAL EXAM: heme positive stool OTHER: No obvious hemorrhoid was noted on rectal exam. Positive hem on stool for occult blood, no cornell blood was noted. : COMMON NORMALS: Yes no CVA tenderness BLADDER/KIDNEY EXAM: Yes no CVA tenderness Back/Pelvis: COMMON NORMALS: no CVA tenderness and thoracic and lumbar spine normal to inspection Extremity: COMMON NORMALS: normal to inspection Neuro: COMMON NORMALS: patient oriented x3 and moves all extremities Psych: COMMON NORMALS: mental status grossly normal and cooperative Skin: COMMON NORMALS: no rashes or lesions noted GENERAL SKIN EXAM: no rashes or lesions noted Course Vital Signs: Vital signs: Vital Signs Temperature 98.7 F 08/26/21 17:32 Pulse Rate 70 08/26/21 19:36 Respiratory Rate 16 08/26/21 19:36 Blood Pressure 117/90 08/26/21 19:36 Pulse Oximetry 99 08/26/21 19:36 MDM - General Adult MDM Narrative: Medical decision making narrative: 35-year-old female comes in today with complaints of blood in stool after defecation. Patient also noted some light blood on her underwear. Differential diagnosis includes but not limited to GI bleed, hemorrhoids, anal fissure. Patient denied any pain with defecation. Patient reported a history of hemorrhoids. Laboratory values noted no significant anemia. CMP was unremarkable. Stool for occult blood was positive. Reviewed exam with patient recommended Anusol suppositories twice a day for the next week. We will also arrange for patient to follow-up general surgeon for further evaluation and possible banding of hemorrhoids. Patient was also written for MiraLAX to take twice a day to keep stool soft. Patient reported understanding and recommendations for follow-up or return to the ER. Lab Data: Labs: Lab Results 08/26/21 08/26/21 08/26/21 17:45 20:05 20:05 WBC 10.9 10^3/uL H 10 ^3/uL (4.0-10.0) RBC 5.23 10^6/uL 10^6 /uL (4.1-5.3) Hgb 14.4 g/dL g/dL (11.5-15.3) Hct 45.9 % % (37.0-47.0) MCV 87.8 fl fl (81-99) MCH 27.5 pg L pg (28.0-34.0) MCHC 31.4 g/dL g/dL (30.0-36.0) RDW 15.8 % H % (12.1-15.1) Plt Count 404 10^3/cmm H 10 ^3/cmm (130-400) MPV 9.1 fL fL (7.4-10.4) Neut % (Auto) 63.3 % % Lymph % (Auto) 24.3 % % [place] % (Auto) 8.6 % % Eos % (Auto) 2.9 % % Baso % (Auto) 0.4 % % Neut # (Auto) 6.91 10^3/uL 10^3 /uL (1.8-7.7) Lymph # (Auto) 2.7 10^3/uL 10^3/ uL (0.8-4.8) [place] # (Auto) 0.9 10^3/uL 10^3/ uL (0.2-0.9) Eos # (Auto) 0.3 10^3/uL 10^3/ uL (0.0-0.8) Baso # (Auto) 0.0 10^3/uL 10^3/ uL (0.0-0.1) Nucleated RBC % (a uto) 0 % % Nucleated RBCs # 0.0 /100WBC /100W BC Sodium 137 mmol/L mmol/L (136-145) Potassium 4.4 mmol/L mmol/L (3.5-5.1) Chloride 98 mmol/L mmol/L (98-107) Carbon Dioxide 28 mmol/L mmol/L (22-29) Anion Gap 15.4 (5-19) BUN 10 mg/dL mg/dL (6-20) Creatinine 0.7 mg/dL mg/dL (0.5-0.9) GFR Calculation 94.2 mL/min mL/mi n (90-130) Glucose 80 mg/dL mg/dL (65-115) Calculated Osmolal ity 282 mOsm/kg L mOs m/kg (285-295) Calcium 9.9 mg/dL mg/dL (8.5-10.5) Total Bilirubin 0.3 mg/dL mg/dL (0.15-1.2) AST 18 U/L U/L (0-32) ALT 20 U/L U/L (0-33) Alkaline Phosphata se 59 IU/L IU/L (35-105) Total Protein 7.9 g/dL g/dL (6.6-8.7) Albumin 4.4 g/dL g/dL (3.5-5.2) Globulin 3.5 g/dL g/dL (1.3-4.6) Urine Color Straw (Yellow) Urine Appearance Clear (CLEAR) Urine pH 7 (5-7) Ur Specific Gravit y 1.010 (1.005-1.030) Urine Protein Neg (Negative) Urine Glucose (UA) Norm (Normal) Urine Ketones Negative (Negative) Urine Blood Neg (Negative) Urine Nitrate Negative (Negative) Urine Bilirubin Neg (Negative) Urine Urobilinogen Norm mg/dL mg/dL (Negative) Ur Leukocyte Ashley ase Negative (Negative) Discharge Plan Discharge Patient Disposition: Home Clinical Impression: Rectal bleeding Hemorrhoids Qualifiers: Hemorrhoid type: unspecified Qualified Code(s): K64.9 - Unspecified hemorrhoids Condition: Stable Prescriptions: New Anusol-HC 25 mg suppository 25 mg MO BID Qty: 12 RF: 0 Miralax 17 gram/dose powder 17 g PO BID Qty: 238 RF: 0 No Action norethindrone (contraceptive) 0.35 mg tablet 0.35 mg PO DAILY Qty: 84 RF: 3 atorvastatin 40 mg tablet 40 mg PO DAILY RF: 0 pioglitazone 15 mg tablet 15 mg PO DAILY RF: 0 metoprolol succinate 100 mg tablet extended release 24 hr 100 mg PO DAILY RF: 0 aripiprazole [Abilify] 15 mg tablet 15 mg PO .qhs Qty: 30 RF: 0 buspirone 10 mg tablet 10 mg PO BID Qty: 60 RF: 0 escitalopram oxalate 10 mg tablet 10 mg PO .q am Qty: 30 RF: 0 lamotrigine [Lamictal] 100 mg tablet 100 mg PO BID Qty: 60 RF: 0 eplerenone 50 mg tablet 50 mg PO DAILY RF: 0 (DME) Articulating AFO See Rx Instructions .Route .MEDSUPPLY Qty: 1 RF: 0 (DME) Diabetic Shoes See Rx Instructions .Route .MEDSUPPLY Qty: 1 RF: 0 pantoprazole 40 mg tablet,delayed release (DR/EC) See Rx Instructions .ROUTE .COMPLEX Qty: 60 RF: 3 trazodone 50 mg tablet 50 mg PO .HS PRN (Reason: sleep) Qty: 30 RF: 1 Discharge Orders: Discharge ED (Routine); Ordered 08/26/21 Ordered By: Jack Garcia Referrals: Branden Staples MD [Primary Care Provider] - Discharge Diet: Usual diet Discharge Activity: Increase activity as tolerated Patient Instructions: Hemorrhoids (ED), Opioid Safety Activity Restrictions/Additional Instructions: Home and rest. Drink plenty of fluids. Use suppository as directed twice a day for the next 6 days. Use MiraLAX twice a day to keep stools soft. Avoid sitting for prolonged times, straining did have a bowel movement, or lifting heavy objects. Follow-up with primary care. Return to the ER for worsening symptoms. Case management will contact you regarding your follow-up with surgeon. Coding Level of Care Code ED Copier Technician for Sandra Chavira Exam Comprehensive
[2021-08-26 19:46] LABS: Add Urine Microscopic? NO; Charge for UA Resulting for Rev
[2021-08-26 19:49] LABS: Bilirubin Urine Neg (Negative); Blood Urine Neg (Negative); Glucose Urine UA Norm (Normal); Ketones Urine Negative (Negative); Leukocyte Esterase Urine Negative (Negative); Nitrate Urine Negative (Negative); Protein Urine Neg (Negative); Urine Appearance Clear (CLEAR); Urine Color Straw (Yellow); Urobilinogen Urine Norm (Negative); pH Urine 7 (5-7)
[2021-08-26 20:10] LABS: Basophils % 0.4 %; Eosinophils # 0.3 10^3/uL (0.0-0.8); Eosinophils % 2.9 %; Hematocrit 45.9 % (37.0-47.0); Hemoglobin 14.4 g/dL (11.5-15.3); Lymphocytes # 2.7 10^3/uL (0.8-4.8); Lymphocytes % 24.3 %; Mean Corpuscular HGB Conc 31.4 g/dL (30.0-36.0); Mean Corpuscular Hemoglobin 27.5 pg (28.0-34.0); Mean Corpuscular Volume 87.8 fl (81-99); Mean Platelet Volume 9.1 fL (7.4-10.4); Monocytes # 0.9 10^3/uL (0.2-0.9); Monocytes % 8.6 %; Neutrophils # 6.91 10^3/uL (1.8-7.7); Neutrophils % 63.3 %; Nucleated Red Blood Cells % 0 %; Platelet Count 404 10^3/cmm (130-400); Red Blood Count 5.23 10^6/uL (4.1-5.3); Red Cell Distribution Width 15.8 % (12.1-15.1); White Blood Count 10.9 10^3/uL (4.0-10.0)
[2021-08-26 20:27] LABS: Alanine Aminotransferase 20 U/L (0-33); Albumin Level 4.4 g/dL (3.5-5.2); Alkaline Phosphatase 59 IU/L (35-105); Anion Gap 15.4 (5-19); Aspartate Amino Transferase 18 U/L (0-32); Blood Urea Nitrogen 10 mg/dL (6-20); Calcium 9.9 mg/dL (8.5-10.5); Carbon Dioxide 28 mmol/L (22-29); Chloride 98 mmol/L (98-107); Globulin 3.5 g/dL (1.3-4.6); Glomerular Filtration Rate 94.2 mL/min (90-130); Glucose 80 mg/dL (65-115); Osmolality Calculated 282 mOsm/kg (285-295); Potassium 4.4 mmol/L (3.5-5.1); Sodium 137 mmol/L (136-145); Total Bilirubin 0.3 mg/dL (0.15-1.2); Total Protein 7.9 g/dL (6.6-8.7)
--- NOTE | 2021-08-27 11:52 | DCPLANNER ---
content creation manager had message to schedule a follow up appointment for patient with general surgery. content creation manager emailed patients information to both Marjan and Samantha at [facility] General Surgery. Patients information will be printed and reviewed. Clinic will call patient with appointment information.
--- NOTE | 2021-10-08 12:21 | DCPLANNER ---
Patient had a follow up appointment scheduled with general surgery - patient did attend appointment.
== END 2021-08-26 20:43 | disposition home or self-care (01) ==
PROVIDERS: Emergency Provider Nurse Practitioner Family; PCP Family Medicine
DX: K64.9 Unspecified hemorrhoids (principal); E11.9 Type 2 diabetes mellitus without complications; I10 Essential (primary) hypertension; Z77.22 Contact with and (suspected) exposure to environmental tobacco smoke (acute) (chronic)
CPT/HCPCS: 80053; 81003; 85025; 99282

== ENCOUNTER → 2021-09-02 08:14 | Outpatient (BNVA) | payer MEDICAID, SELFPAY | PROVIDERS: PCP Family Medicine; Visit Provider Social Worker | DX: F41.1 Generalized anxiety disorder (principal); F43.12 Post-traumatic stress disorder, chronic; F33.1 Major depressive disorder, recurrent, moderate | CPT/HCPCS: 90834 ==

== ENCOUNTER → 2021-09-06 08:35 | Outpatient (BNVA) | payer MEDICAID, SELFPAY | PROVIDERS: PCP Family Medicine; Visit Provider Surgery | DX: K92.1 Melena (principal); Z20.822 Contact with and (suspected) exposure to COVID-19 | CPT/HCPCS: 87635 ==

== ENCOUNTER → 2021-09-09 08:58 | Outpatient (BNVA) | payer MEDICAID, SELFPAY | PROVIDERS: PCP Family Medicine; Visit Provider Social Worker | DX: F41.1 Generalized anxiety disorder (principal); F43.12 Post-traumatic stress disorder, chronic; F33.1 Major depressive disorder, recurrent, moderate | CPT/HCPCS: 90834 ==

== ENCOUNTER 2021-09-13 08:30 | Day surgery (SDC) | payer MEDICAID, SELFPAY ==
[2021-09-10 14:25] VITALS: BMI 45.8
[2021-09-13] VITALS (7 sets, daily range): BP systolic 85–124; BP diastolic 51–76; PULSE 59–75; RESP 10–18; TEMP 36.1–36.4; O2SAT 98–100
--- NOTE | 2021-09-13 09:21 | W.PM.OPSUD ---
Surgery/Procedure H&P Update DATE OF PROCEDURE: September 13, 2021 DATE H&P PERFORMED: 09/06/21 H&P UPDATE INFORMATION: I have reviewed H&P completed within last 30 days, I have examined patient prior to procedure and No changes to prior documentation PREOP DIAGNOSIS: Bleeding per rectum PRIMARY INDICATION FOR PROCEDURE: The same PLANNED PROCEDURE: Operation Date: 09/13/21 10:10 Proposed Procedures p Colonoscopy [id number] K92.1(Not Applicable) - Bernardo Norton MD s Hemorroidectomy(Not Applicable) - Bernardo Norton MD
[2021-09-13] MEDS: sodium chloride 0.9% 1,000 ML 30 ML IV (09:36)
[2021-09-13 10:00] LABS: OR HCG Qualitative Urine Negative (Negative)
--- NOTE | 2021-09-13 11:52 | PM.OP ---
Operative Report Date of procedure: September 13, 2021 Pre-op Diagnosis: Bleeding per rectum Post-op diagnosis: other (Rectal polyp 3 x 3 mm) Procedure Done: Colonoscopy with polypectomy Specimens removed/disposition: Rectal polyp Surgeon: Bernardo Norton Substation Designer: DIANE Cabello Circulating nurse Siomara Anesthesia: MAC (Fred Smith) Estimated blood loss (mL): 1 Findings: Rectal polyp Multiple diverticuli of the right side of the colon [place] without complications Condition: stable Disposition: same day Brief History: Bleeding per rectum Procedure: Patient was identified in the holding area, was taken to the OR placed first in a left lateral position,time-out was done verifying the patient's name, date of , and procedure, all were in agreement. Under MAC was dministered by the anesthesia provider. Perianal examination showed normal findings and no evidence of external hemorrhoids or sinuses or fissures. Following that a digital rectal examination was done showed normal findings and no evidence of blood on the examining finger, the colonoscope was then introduced via the anus under direct visualization, all the way to the proximal to the cecum, a polyp was appreciated at the rectum and was excised using cold biopsy forceps,retrieved and passed to the circulating nurse for permanent pathology, prep of the colon was appropriate, otherwise there were no polyps identified or masses, presence of multiple diverticuli towards the proximal ascending colon, appendiceal orifice was identified and showed no abnormalities.The scope was then retrieved back, gas was deflated on the way out.Retroflex was done at the end showing showed no evidence of internal hemorrhoids, time to retrieve the scope from the cecum to the anus exceeded 7 minutes. Patient tolerated the procedure well and was taken to or after to the recovery area. In stable condition. I was present for the whole entire procedure.
--- NOTE | 2021-09-13 13:03 | ANES.PREANE2 ---
Pre-Anesthetic Assessment Pre-Anesthetic Assessment: Height/Weight: Height 1.57 m Weight 113.852 kg Temp Pulse Resp BP Pulse Ox 97 F L 75 16 103/62 100 09/13/21 12:36 09/13/21 12:36 09/13/21 12:36 09/13/21 12:36 09/13/21 12:36 Preop Diagnosis: Bleeding per rectum Proposed Procedure: Operation Date: 09/13/21 10:10 Proposed Procedures p Colonoscopy [id number] K92.1(Not Applicable) - Bernardo Norton MD s Hemorroidectomy(Not Applicable) - Bernardo Norton MD Was Beta Luis M taken within 24 hours: Yes Was Clonidine taken within 24 hours: N/A Last intake: Intake Last Liquid Date 09/12/21 Last Liquid Time 22:00 Last Solid Date 09/11/21 Last Solid Time 12:00 Social: Social History: Tobacco and No alcohol Exam: Pre-Anes Outpt Exam: alert, oriented x 3 and regular rate & rhythm Airway: Submandibular: WNL Cervical ROM: WNL MP: 2 Dentition: False Pulmonary: Pulmonary: COPD CV/HEM: CV/HEM: HTN GI: GI: GERD Metabolic: Metabolic: DM, Hyperlipidemia and Morbid obesity Neuropsych: Neuropsych: Anxiety and Depression Anesthetic Plan: ASA status: 3 Anesthesia: General Risk of > 500 ml blood loss (7ml/kg in children): No PFSH Anesthesia PFSH: Medical History (Updated 09/13/21 @ 11:58 by Bernardo Norton MD) Bleeding per rectum Breast cyst Colon polyp Diabetes Generalized anxiety disorder Hypercholesteremia Hypersomnia, unspecified Hypertension Major depressive disorder, recurrent, moderate No pertinent past medical history neghx: thyroid,dvt/pe PCP: Dr. Staples PCOS (polycystic ovarian syndrome) Post-traumatic stress disorder, chronic Psychiatric care Surgical History History of cervical cerclage 2006 2007 History of gastric surgery (~2018) Sleeve-- Valeryurgius Hx of carpal tunnel repair L hand Hx of section (~2007) Hx of dilation and curettage 2002- 2003- SAB Hx of removal of cyst (~03/2021) cyst on L breast Family History Mother Diabetes Hypertension Uterine cancer dx age 30--had hysterectomy Hypercholesteremia Father Hypertension Heart disease Hypercholesteremia Family/Other Breast cancer Maternal aunt Denies family history of Colon cancer Ovarian cancer Clotting disorder Bleeding disorder Thyroid disease Stroke Social History Second hand smoke exposure: Yes Female Reproductive History: Date of last menstrual period: 08/27/20 Data Anesthesia Other Labs: Laboratory Results - last 48 hr 09/13/21 09:57 Urine HCG, Qual Negative Cardiac Studies: No Data to Display
--- NOTE | 2021-09-13 15:39 | ANE.PACU2 ---
Inpatient post-anesthesia follow up: Airway intact: Yes Vital signs: Temperature 97 F Pulse Rate 75 Respiratory Rate 16 Blood Pressure 103/62 Pulse Oximetry 100 Oxygen Delivery Me thod Room Air Oxygen Flow Rate 8 Fraction of Inspir ed Oxygen Hydration adequate: Yes Nausea and vomiting: No Pain level: 2 Mental status: Baseline
== END 2021-09-13 12:39 | disposition home or self-care (01) ==
PROVIDERS: PCP Family Medicine; Visit Provider Surgery
PROC: 0DJD8ZZ Inspection of Lower Intestinal Tract, Via Natural or Artificial Opening Endoscopic (ICD-10-PCS; CPT 45378; principal; 2021-09-13 10:00)
DX: K92.1 Melena (principal); J44.9 Chronic obstructive pulmonary disease, unspecified; I10 Essential (primary) hypertension; K21.9 Gastro-esophageal reflux disease without esophagitis; E11.9 Type 2 diabetes mellitus without complications; E78.5 Hyperlipidemia, unspecified; E66.01 Morbid (severe) obesity due to excess calories; Z68.42 Body mass index [BMI] 45.0-49.9, adult; F41.9 Anxiety disorder, unspecified; F32.9 Major depressive disorder, single episode, unspecified; E78.00 Pure hypercholesterolemia, unspecified; E28.2 Polycystic ovarian syndrome; Z98.84 Bariatric surgery status
CPT/HCPCS: 45380; 84703; 88305; J7030

== ENCOUNTER → 2021-09-15 08:56 | Outpatient (BNVA) | payer MEDICAID, SELFPAY | PROVIDERS: PCP Family Medicine; Visit Provider Social Worker | DX: F41.1 Generalized anxiety disorder (principal); F43.12 Post-traumatic stress disorder, chronic; F33.1 Major depressive disorder, recurrent, moderate | CPT/HCPCS: 90834 ==

== ENCOUNTER → 2021-09-21 08:28 | Outpatient (BNVA) | payer MEDICAID, SELFPAY | PROVIDERS: PCP Family Medicine; Visit Provider Nurse Practitioner Psychiatric/Mental Health | DX: F41.1 Generalized anxiety disorder (principal); F43.12 Post-traumatic stress disorder, chronic; F33.1 Major depressive disorder, recurrent, moderate | CPT/HCPCS: 99214 ==

== ENCOUNTER → 2021-09-22 09:03 | Outpatient (BNVA) | payer MEDICAID, SELFPAY | PROVIDERS: PCP Family Medicine; Visit Provider Social Worker | DX: F41.1 Generalized anxiety disorder (principal); F43.12 Post-traumatic stress disorder, chronic; F33.1 Major depressive disorder, recurrent, moderate | CPT/HCPCS: 90834 ==

== ENCOUNTER → 2021-09-29 10:13 | Outpatient (BNVA) | payer MEDICAID, SELFPAY | PROVIDERS: PCP Family Medicine; Visit Provider Social Worker | DX: F41.1 Generalized anxiety disorder (principal); F43.12 Post-traumatic stress disorder, chronic; F33.1 Major depressive disorder, recurrent, moderate | CPT/HCPCS: 90834 ==

== ENCOUNTER → 2021-10-08 11:50 | Outpatient (BNVA) | payer MEDICAID, SELFPAY | PROVIDERS: PCP Family Medicine; Visit Provider Social Worker | DX: F41.1 Generalized anxiety disorder (principal); F43.12 Post-traumatic stress disorder, chronic; F33.1 Major depressive disorder, recurrent, moderate | CPT/HCPCS: 90834 ==

== ENCOUNTER → 2021-10-12 09:14 | Outpatient (BNVA) | payer MEDICAID, SELFPAY | PROVIDERS: PCP Family Medicine; Referring Provider Family Medicine; Visit Provider Orthopaedic Surgery | DX: M79.641 Pain in right hand (principal) | CPT/HCPCS: 73130 ==

== ENCOUNTER → 2021-10-19 12:36 | Outpatient (BNVA) | payer MEDICAID, SELFPAY | PROVIDERS: PCP Family Medicine; Visit Provider Nurse Practitioner Psychiatric/Mental Health | DX: F41.1 Generalized anxiety disorder (principal); F43.12 Post-traumatic stress disorder, chronic; F33.1 Major depressive disorder, recurrent, moderate | CPT/HCPCS: 99214 ==

== ENCOUNTER → 2021-10-27 08:55 | Outpatient (BNVA) | payer MEDICAID, SELFPAY | PROVIDERS: PCP Family Medicine; Visit Provider Social Worker | DX: F41.1 Generalized anxiety disorder (principal); F43.12 Post-traumatic stress disorder, chronic; F33.1 Major depressive disorder, recurrent, moderate | CPT/HCPCS: 90834 ==

== ENCOUNTER → 2021-11-10 11:15 | Outpatient (BNVA) | payer MEDICAID, SELFPAY | PROVIDERS: PCP Family Medicine; Visit Provider Social Worker | DX: F41.1 Generalized anxiety disorder (principal); F43.12 Post-traumatic stress disorder, chronic; F33.1 Major depressive disorder, recurrent, moderate | CPT/HCPCS: 90834 ==

== ENCOUNTER → 2021-11-16 10:03 | Outpatient (BNVA) | payer MEDICAID, SELFPAY | PROVIDERS: PCP Family Medicine; Visit Provider Social Worker | DX: F41.1 Generalized anxiety disorder (principal); F43.12 Post-traumatic stress disorder, chronic; F33.1 Major depressive disorder, recurrent, moderate | CPT/HCPCS: 90834 ==

== ENCOUNTER → 2021-11-17 10:33 | Outpatient (BNVA) | payer MEDICAID, SELFPAY | PROVIDERS: PCP Family Medicine; Referring Provider Orthopaedic Surgery; Visit Provider Specialist | DX: M79.641 Pain in right hand (principal); R20.0 Anesthesia of skin; R20.2 Paresthesia of skin; Z87.891 Personal history of nicotine dependence | CPT/HCPCS: 95909 ==

== ENCOUNTER → 2021-11-23 08:26 | Outpatient (BNVA) | payer MEDICAID, SELFPAY | PROVIDERS: PCP Family Medicine; Visit Provider Nurse Practitioner Psychiatric/Mental Health | DX: F41.1 Generalized anxiety disorder (principal); F43.12 Post-traumatic stress disorder, chronic; F33.1 Major depressive disorder, recurrent, moderate | CPT/HCPCS: 99213 ==

== ENCOUNTER → 2021-11-25 09:07 | Outpatient (BNVA) | payer MEDICAID, SELFPAY | PROVIDERS: PCP Family Medicine; Visit Provider Social Worker | DX: F41.1 Generalized anxiety disorder (principal); F43.12 Post-traumatic stress disorder, chronic; F33.1 Major depressive disorder, recurrent, moderate | CPT/HCPCS: 90832 ==

== ENCOUNTER 2021-11-27 07:40 | Emergency (ER) | payer MEDICAID, SELFPAY ==
[2021-11-27 07:44] VITALS: BP 134/85; PULSE 94; RESP 16; TEMP 36.6; O2SAT 97; BMI 45.7
--- NOTE | 2021-11-27 07:53 | XRR_ITS ---
PROCEDURE INFORMATION: Exam: XR Chest Exam date and time: 11/27/2021 7:53 AM Age: 36 years old Clinical indication: Cough and dyspnea; Additional info: Dyspnea/cough TECHNIQUE: Imaging protocol: XR of the chest. Views: 1 view. COMPARISON: CR Chest 1 [place] [id number] 02/06/2019 9:50 PM FINDINGS: Lungs: Unremarkable. No consolidation. Pleural spaces: Unremarkable. No pleural effusion. No pneumothorax. Heart/Mediastinum: Unremarkable. No cardiomegaly. Bones/joints: Unremarkable. XR/XR chest 1V portable [id number] IMPRESSION: No acute findings.
--- NOTE | 2021-11-27 08:04 | W.ED.GENADLT ---
Documented by User: FRANCINE Carreno 11/27/21 10:03 HPI - General Adult General: Chief complaint: Airway/Esophagus Foreign Body Stated complaint: FEELS LIKE MED STUCK IN THROAT FROM LAST NIGHT Time Seen by Provider: 11/27/21 07:41 Source: patient Mode of arrival: ambulatory Limitations: no limitations History of Present Illness: HPI narrative: Patient is a 36-year-old female presents to ED today with a complaint of a possible pill foreign body. Patient states last night she was taking 2 tablets of her BuSpar. She states she felt like the first tablet went down normal but states after taking the second tablet she felt like it became stuck. Patient reports feeling a foreign body sensation when she swallows. She states she can feel a foreign body sensation to her lower anterior neck. Patient states she tried dry heaving, gagging, and vomiting last night to dislodge the pill but was unsuccessful. She states she did cough a lot last night. She reports wearing her CPAP throughout the night hoping that the humidity would dissolve the pill. Patient states she took her morning medications with water this morning and felt like they went down okay. Onset (ago): hour(s) Associated symptoms: Deny chest pain, dyspnea, nausea, syncope or vomiting Review of Systems Const: Denies: fever(s) or chills ENMT: Reports: other (fb sensation when she swallows); Denies: throat pain or odynophagia Card: Denies: chest pain, lightheadedness, syncope or pre-syncope Resp: Reports: non-productive cough; Denies: dyspnea, wheezing, stridor, pain on inspiration, hemoptysis or chest congestion GI: Denies: abdominal pain, nausea, vomiting or diarrhea Musc: Reports: neck pain (reports fb sensation anterior neck) [facility] PFSH: Medical History Bleeding per rectum Breast cyst Colon polyp Diabetes Generalized anxiety disorder Hypercholesteremia Hypersomnia, unspecified Hypertension Major depressive disorder, recurrent, moderate No pertinent past medical history neghx: thyroid,dvt/pe PCP: Dr. Staples PCOS (polycystic ovarian syndrome) Post-traumatic stress disorder, chronic Psychiatric care Surgical History History of cervical cerclage 2006 2007 History of gastric surgery (~2019) Sleeve-- Giurgius Hx of carpal tunnel repair L hand Hx of section (~2007) Hx of dilation and curettage 2002- SAB 2003- SAB Hx of removal of cyst (~03/2021) cyst on L breast Family History Mother Diabetes Hypertension Uterine cancer dx age 30--had hysterectomy Hypercholesteremia Father Hypertension Heart disease Hypercholesteremia Family/Other Breast cancer Maternal aunt Denies family history of Colon cancer Ovarian cancer Clotting disorder Bleeding disorder Thyroid disease Stroke Social History Smoking and tobacco status: former smoker Second hand smoke exposure: Yes Female Reproductive History: Date of last menstrual period: 08/27/20 Physical Exam Const: COMMON NORMALS: no acute distress, patient oriented x3, no limitations and alert GENERAL APPEARANCE: cooperative NUTRITIONAL APPEARANCE: obese ORIENTATION/CONSCIOUSNESS: Yes awake, Yes oriented to person, Yes oriented to place and Yes oriented to time HENMT: COMMON NORMALS: normocephalic and atraumatic HEAD & SCALP: normal to inspection, normocephalic and atraumatic FACE & SINUS: other (hirsutism) Neck/C-Spine: COMMON NORMALS: full ROM Resp: COMMON NORMALS: normal respiratory effort and clear to auscultation bilaterally AUSCULTATION: clear to auscultation bilaterally Cardio: COMMON NORMALS: regular rate and regular rhythm RATE: regular rate RHYTHM: regular rhythm Neuro: COMMON NORMALS: patient oriented x3 SENSORIUM/ORIENTATION: Yes alert, Yes oriented to person, Yes oriented to place and Yes oriented to time Course Vital Signs: Vital signs: Vital Signs Temperature 97.9 F 11/27/21 07:44 Pulse Rate 94 11/27/21 07:44 Respiratory Rate 16 11/27/21 07:44 Blood Pressure 134/85 11/27/21 07:44 Pulse Oximetry 97 11/27/21 07:44 MDM - General Adult MDM Narrative: Medical decision making narrative: Patient appears in no acute distress. Her vital signs are normal. CXR and XR soft tissue neck appear normal. Patient was able to eat food and drink normally here in the ED. I do not have any concern for pill aspiration at this time. Spoke to Dr. Amado regarding case/presentation and he reviewed XRs and feels patient is stable for DC at this time. Strict return to ED precautions given. Imaging Data^: CXR: Radiologist's impression: [facility] [address] [place] [id number] XRay Report Signed Patient: Savana Grady Unit #: [id number] : 1985 Age/Sex: 36 / F ADM Date: 11/27/21 Loc: ER Room/Bed: Attending Dr: Ordering Provider/Ordering MD: Francisco Amado DO Date of Service: 11/27/21 Procedure(s): XR chest 1V portable [id number] Accession Number(s): [id number] Report Number: [id number] PROCEDURE INFORMATION: Exam: XR Chest Exam date and time: 11/27/2021 7:53 AM Age: 36 years old Clinical indication: Cough and dyspnea; Additional info: Dyspnea/cough TECHNIQUE: Imaging protocol: XR of the chest. Views: 1 view. COMPARISON: CR Chest 1 [place] [id number] 02/06/2019 9:50 PM FINDINGS: Lungs: Unremarkable. No consolidation. Pleural spaces: Unremarkable. No pleural effusion. No pneumothorax. Heart/Mediastinum: Unremarkable. No cardiomegaly. Bones/joints: Unremarkable. XR/XR chest 1V portable [id number] IMPRESSION: No acute findings. Dictated By: Ko Carpio Signed By: Ko Carpio Signed Date/Time: 11/27/21 0953 DD/ 0753 XR soft tissue: Radiologist's impression: [facility] [address] [place] [address]. [place] [address] XRay Report Signed Patient: Savana Grady Unit #: [id number] : 1985 Age/Sex: 36 / F ADM Date: 11/27/21 Loc: ER Room/Bed: Attending Dr: Ordering Provider/Ordering MD: Francisco Amado DO Date of Service: 11/27/21 Procedure(s): XR soft tissue neck [id number] Accession Number(s): [id number] Report Number: [id number] PROCEDURE INFORMATION: Exam: XR Soft Tissue Neck Exam date and time: 11/27/2021 8:26 AM Age: 36 years old Clinical indication: Pain; Other: Feels like something is stuck in her throat; Additional info: Foreign body sensation TECHNIQUE: Imaging protocol: XR of the soft tissues of the neck. COMPARISON: CT neck w con* [id number] 12/30/2016 10:26 AM FINDINGS: Airway: Normal. No abnormal narrowing. Soft tissues: Normal. Normal epiglottis. Bones/joints: Mild degenerative changes are present in the lower cervical spine with small osteophytes on the vertebral bodies. XR/XR soft tissue neck [id number] IMPRESSION: No acute findings. No foreign body seen. Dictated By: Ko Carpio Signed By: Ko Carpio Signed Date/Time: 11/27/21953 DD/ 5 Discharge Plan Discharge Patient Disposition: Home Clinical Impression: Globus sensation Condition: Stable Prescriptions: No Action atorvastatin 40 mg tablet 40 mg PO DAILY RF: 0 pioglitazone 15 mg tablet 15 mg PO DAILY RF: 0 metoprolol succinate 100 mg tablet extended release 24 hr 100 mg PO DAILY RF: 0 propranolol 20 mg tablet 20 mg PO BID Qty: 60 RF: 5 eplerenone 50 mg tablet 50 mg PO DAILY RF: 0 (DME) Articulating AFO See Rx Instructions .Route .MEDSUPPLY Qty: 1 RF: 0 (DME) Diabetic Shoes See Rx Instructions .Route .MEDSUPPLY Qty: 1 RF: 0 buspirone 15 mg tablet 15 mg PO BID Qty: 90 RF: 1 lamotrigine [Lamictal] 100 mg tablet 100 mg PO BID Qty: 60 RF: 1 escitalopram oxalate 20 mg tablet 20 mg PO .q am Qty: 30 RF: 1 norethindrone (contraceptive) [Sharobel] 0.35 mg tablet See Rx Instructions .ROUTE .COMPLEX Qty: 84 RF: 3 pantoprazole 40 mg tablet,delayed release (DR/EC) See Rx Instructions .ROUTE .COMPLEX Qty: 60 RF: 3 polyethylene glycol 3350 [Miralax] 17 gram/dose powder 17 g PO BID Qty: 238 RF: 0 Discharge Orders: Discharge ED (Routine); Ordered 11/27/21 Ordered By: Violet Dai Referrals: Branden Staples MD [Primary Care Provider] - Coding Level of Care Code ED 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 Staples PCOS (polycystic ovarian syndrome) Post-traumatic stress disorder, chronic Psychiatric care Surgical History History of cervical cerclage 2006 2007 History of gastric surgery (~2018) Sleeve-- Giurgius Hx of carpal tunnel repair L hand Hx of section (~2007) Hx of dilation and curettage 2002- 2003- Hx of removal of cyst (~03/2021) cyst on L breast Family History Mother Diabetes Hypertension Uterine cancer dx age 30--had hysterectomy Hypercholesteremia Father Hypertension Heart disease Hypercholesteremia Family/Other Breast cancer Maternal aunt Denies family history of Colon cancer Ovarian cancer Clotting disorder Bleeding disorder Thyroid disease Stroke Social History Smoking and tobacco status: former smoker Second hand smoke exposure: Yes Course Vital Signs: Vital signs: Vital Signs Temperature 97.9 F 11/27/21 07:44 Pulse Rate 94 11/27/21 07:44 Respiratory Rate 16 11/27/21 07:44 Blood Pressure 134/85 11/27/21 07:44 Pulse Oximetry 97 11/27/21 07:44 MDM - General Adult MDM Narrative: Medical decision making narrative: Chart reviewed and patient discussed with midlevel. Agree with assessment and plan. Discharge Plan Discharge Patient Disposition: Home Clinical Impression: Globus sensation Condition: Stable Prescriptions: No Action atorvastatin 40 mg tablet 40 mg PO DAILY RF: 0 pioglitazone 15 mg tablet 15 mg PO DAILY RF: 0 metoprolol succinate 100 mg tablet extended release 24 hr 100 mg PO DAILY RF: 0 propranolol 20 mg tablet 20 mg PO BID Qty: 60 RF: 5 eplerenone 50 mg tablet 50 mg PO DAILY RF: 0 (DME) Articulating AFO See Rx Instructions .Route .MEDSUPPLY Qty: 1 RF: 0 (DME) Diabetic Shoes See Rx Instructions .Route .MEDSUPPLY Qty: 1 RF: 0 buspirone 15 mg tablet 15 mg PO BID Qty: 90 RF: 1 lamotrigine [Lamictal] 100 mg tablet 100 mg PO BID Qty: 60 RF: 1 escitalopram oxalate 20 mg tablet 20 mg PO .q am Qty: 30 RF: 1 norethindrone (contraceptive) [Sharobel] 0.35 mg tablet See Rx Instructions .ROUTE .COMPLEX Qty: 84 RF: 3 pantoprazole 40 mg tablet,delayed release (DR/EC) See Rx Instructions .ROUTE .COMPLEX Qty: 60 RF: 3 polyethylene glycol 3350 [Miralax] 17 gram/dose powder 17 g PO BID Qty: 238 RF: 0 Discharge Orders: Discharge ED (Routine); Ordered 11/27/21 Ordered By: Violet Dai Referrals: Branden Staples MD [Primary Care Provider] - Coding Level of Care Code ED Supervisor [employer] for Chg Fwd Exam Detailed
--- NOTE | 2021-11-27 08:26 | XRR_ITS ---
PROCEDURE INFORMATION: Exam: XR Soft Tissue Neck Exam date and time: 11/27/2021 8:26 AM Age: 36 years old Clinical indication: Pain; Other: Feels like something is stuck in her throat; Additional info: Foreign body sensation TECHNIQUE: Imaging protocol: XR of the soft tissues of the neck. COMPARISON: CT neck w con* [id number] 12/30/2016 10:26 AM FINDINGS: Airway: Normal. No abnormal narrowing. Soft tissues: Normal. Normal epiglottis. Bones/joints: Mild degenerative changes are present in the lower cervical spine with small osteophytes on the vertebral bodies. XR/XR soft tissue neck [id number] IMPRESSION: No acute findings. No foreign body seen.
[2021-11-27] MEDS: LORazepam 2 mg/mL INJ 1 mL 1 MG IVP (08:47)
== END 2021-11-27 09:49 | disposition home or self-care (01) ==
PROVIDERS: Emergency Provider Physician Assistant; PCP Family Medicine
DX: F45.8 Other somatoform disorders (principal); E11.9 Type 2 diabetes mellitus without complications; I10 Essential (primary) hypertension; Z87.891 Personal history of nicotine dependence
CPT/HCPCS: 70360; 71045; 96374; 96375; 99284; 99291; J1610; J2060

== ENCOUNTER → 2021-12-06 14:46 | Outpatient (BNVA) | payer MEDICAID, SELFPAY | PROVIDERS: PCP Family Medicine; Referring Provider Family Medicine; Visit Provider Specialist | DX: R20.0 Anesthesia of skin (principal); R20.2 Paresthesia of skin | CPT/HCPCS: 95911 ==

== ENCOUNTER → 2021-12-15 08:07 | Outpatient (BNVA) | payer MEDICAID, SELFPAY | PROVIDERS: PCP Family Medicine; Visit Provider Social Worker | DX: F41.1 Generalized anxiety disorder (principal); F43.12 Post-traumatic stress disorder, chronic; F33.1 Major depressive disorder, recurrent, moderate | CPT/HCPCS: 90834 ==

== ENCOUNTER → 2021-12-21 08:49 | Outpatient (BNVA) | payer MEDICAID, SELFPAY | PROVIDERS: PCP Family Medicine; Visit Provider Nurse Practitioner Psychiatric/Mental Health | DX: F41.1 Generalized anxiety disorder (principal); F43.12 Post-traumatic stress disorder, chronic; F33.1 Major depressive disorder, recurrent, moderate | CPT/HCPCS: 99213 ==

== ENCOUNTER 2021-12-22 16:38 | Outpatient (CLI) | payer MEDICAID, SELFPAY ==
--- NOTE | 2021-12-22 16:46 | CTR_ITS ---
PROCEDURE INFORMATION: Exam: CT Abdomen And Pelvis With Contrast Exam date and time: 12/22/2021 4:46 PM Age: 36 years old Clinical indication: Abdominal pain; Generalized; Prior surgery; Surgery date: 6+ months; Surgery type: Bariatric; Patient HX: Llq pain TECHNIQUE: Imaging protocol: Computed tomography of the abdomen and pelvis with contrast. Radiation optimization: All CT scans at this facility use at least one of these dose optimization techniques: automated exposure control; mA and/or kV adjustment per patient size (includes targeted exams where dose is matched to clinical indication); or iterative reconstruction. Contrast material: OMNIPAQUE 300; Contrast volume: 95 ml; Contrast route: INTRAVENOUS (IV); COMPARISON: CT abdomen pelvis w con* [id number] 04/10/2019 2:02 PM RADIATION DOSE METRICS: Total DLP (mGy-cm): 631.27 FINDINGS: Lungs: There is a noncalcified pulmonary nodule along the minor fissure on axial series 4, image 5 measuring 5 mm, stable since 2019. No further imaging follow-up is necessary based on Fleischner society criteria. Liver: The liver is normal. Gallbladder and bile ducts: There is high attenuation material within the gallbladder lumen consistent with sludge. There is no intrahepatic or extrahepatic bile duct dilation. Pancreas: The pancreas is unremarkable. Spleen: The spleen is unremarkable. Adrenal glands: The adrenal glands are unremarkable. Kidneys and ureters: The right kidney and ureter are unremarkable. Delayed nephrogram on the left. Mildly enlarged left kidney. Moderate left hydronephrosis and proximal hydroureter. 4 x 3 x 6 mm stone in the proximal left ureter 6 cm beyond the ureteropelvic junction. Distal left ureter is decompressed. Stomach and bowel: There is a sleeve gastropexy without apparent complications. The small bowel is nondilated. There is mild diverticulosis of the ascending and descending colon. There is focal a diverticular inflammation and pericolonic edema in the mid descending colon. No extraluminal gas or fluid collection. See axial series 5, image 48. Incidentally, the left ureteral stone is visible on the same image. Appendix: The appendix is normal. Intraperitoneal space: There is no free air or significant intraperitoneal free fluid. Vasculature: The aorta is unremarkable. There is no aneurysm. Lymph nodes: There is no lymphadenopathy in the retroperitoneum, mesentery, pelvis or inguinal regions. Urinary bladder: The urinary bladder is unremarkable. Reproductive: The uterus is unremarkable. There is no adnexal mass or large cyst. Bones/joints: Bones are unremarkable. Soft tissues: The abdominal wall is intact. CT/CT abdomen pelvis w con* [id number] IMPRESSION: 1. 3 x 4 x 6 mm stone in the proximal left ureter producing moderate hydronephrosis. 2. Uncomplicated descending colonic diverticulitis.
[2021-12-22] MEDS: iohexol 300 mg/mL 100 mL Btl IV (17:11)
== END 2021-12-22 16:39 | disposition home or self-care (01) ==
LOC: RAD 16:39
PROVIDERS: PCP Family Medicine; Visit Provider Family Medicine
DX: R10.32 Left lower quadrant pain (principal); N13.30 Unspecified hydronephrosis; K57.92 Diverticulitis of intestine, part unspecified, without perforation or abscess without bleeding
CPT/HCPCS: 74177

== ENCOUNTER 2021-12-24 07:21 | Outpatient (CLI) | payer MEDICAID, SELFPAY ==
--- NOTE | 2021-12-24 07:25 | XRR_ITS ---
PROCEDURE INFORMATION: Exam: XR Abdomen Exam date and time: 12/24/2021 7:25 AM Age: 36 years old Clinical indication: Condition or disease; Kidney or ureter condition; Calculus (stone) in kidney; Prior surgery; Surgery type: Gastric sleeve; Patient HX: Kidney stone left; C/O left flank pain and radiates to front; Additional info: Renal stone, kub @ ozh on 12/24/21 @ 7. Appt to follow TECHNIQUE: Imaging protocol: XR of the abdomen. Views: Frontal supine view of the abdomen. 1 View. Total images: 2 COMPARISON: CT abdomen pelvis w con* [id number] 12/22/2021 4:57 PM FINDINGS: Tubes, catheters and devices: Multiple surgical clips are present. Gastrointestinal tract: Bowel gas pattern is nondistended and nonobstructive. Organs: No renal, ureteral, nor bladder calculi detected. Vasculature: Incidental phleboliths noted. Bones/joints: Unremarkable. Other findings: Moderate stool burden. XR/XR KUB [id number] IMPRESSION: 1. Normal bowel gas pattern 2. Moderate stool burden. 3. No renal, ureteral, nor bladder calculi detected.
== END 2021-12-24 07:22 | disposition home or self-care (01) ==
PROVIDERS: PCP Family Medicine; Visit Provider Urology
DX: N20.0 Calculus of kidney (principal)
CPT/HCPCS: 74018; 81003

== ENCOUNTER 2022-01-03 14:00 | Outpatient (CLI) | payer MEDICAID, SELFPAY ==
--- NOTE | 2022-01-03 14:17 | XR_ITS ---
WS: [id number] XR KUB [id number] REASON FOR EXAM: LEFT URETERAL STONE FINDINGS: Calculus within the left ureter overlying the left transverse process of L4 on 12/24/2021 has migrated only a few millimeters distal to its previous location. No other significant interval change in the abdomen compared to the previous study. XR/XR KUB [id number] IMPRESSION: Minimal distal migration of previously identified left ureteral calculus.
== END 2022-01-03 14:01 | disposition home or self-care (01) ==
LOC: RAD 14:07
PROVIDERS: PCP Family Medicine; Visit Provider Urology
DX: N20.1 Calculus of ureter (principal)
CPT/HCPCS: 74018; 81003; 87635

== ENCOUNTER 2022-01-05 06:27 | Day surgery (SDC) | payer MEDICAID, SELFPAY ==
[2022-01-04 16:04] VITALS: BMI 45.7
[2022-01-05] VITALS (13 sets, daily range): BP systolic 135–162; BP diastolic 81–104; PULSE 73–92; RESP 16–18; TEMP 36.2–37.3; O2SAT 91–98
--- NOTE | 2022-01-05 | SCC_ITS ---
Procedure done: 1. Cystoscopy with left retrograde ureteropyelogram 2. Left ureterorenoscopy, laser lithotripsy, stent (6 Iranian by 24 cm double-pigtail without string) 74.5 seconds of fluoroscopic guidance, for a cumulative dose of 36.20 mGy, was provided to Dr. Crow by the radiology department. C-arm images of the abdomen were saved for the patient's permanent record. [facility]
--- NOTE | 2022-01-05 | SCC_ITS ---
Procedure done: 1. Cystoscopy with left retrograde ureteropyelogram 2. Left ureterorenoscopy, laser lithotripsy, stent (6 Ukrainian by 24 cm double-pigtail without string) 74.5 seconds of fluoroscopic guidance, for a cumulative dose of 36.20 mGy, was provided to Dr. Crow by the radiology department. C-arm images of the abdomen were saved for the patient's permanent record. [facility]
--- NOTE | 2022-01-05 06:38 | XR_ITS ---
WS: [id number] ABDOMEN 1 VIEW(S) HISTORY: Left ureteral calculus, preop ESWL COMPARISON: CT abdomen and pelvis 12/22/2021 Normal bowel gas pattern. Triangular shaped calcification measuring 7 mm in the mid LEFT ureter. Calcification at the level of L4. Not significantly changed since the prior examination. No additional calcifications identified ov er the kidneys. Very mild LEFT curvature lumbar spine. Prior cholecystectomy. XR/XR KUB [id number] IMPRESSION: 1. Mid LEFT ureteral calcification measures 7 mm. No significant change in pro gression since 12/22/2021. 2. Prior cholecystectomy.
[2022-01-05 07:04] LABS: Glucose Point of Care 108 mg/dL (70-110)
[2022-01-05] MEDS: sodium chloride 0.9% 1,000 ML 30 ML IV (07:09)
[2022-01-05 07:38] LABS: OR HCG Qualitative Urine Negative (Negative)
[2022-01-05] MEDS: ondansetron 2 mg/ML SDV 2 mL 4 MG IVP (07:53)
[2022-01-05] MEDS: fentaNYL 50 mcg/mL INJ 2mL IVP ×2 (07:54→11:26)
--- NOTE | 2022-01-05 08:23 | W.PM.OPSUD ---
Surgery/Procedure H&P Update DATE OF PROCEDURE: January 05, 2022 DATE H&P PERFORMED: 01/05/22 H&P UPDATE INFORMATION: I have reviewed H&P completed within last 30 days, I have examined patient prior to procedure, No changes to prior documentation and H&P is in [facility] EMR on date indicated CHANGES TO PREVIOUS DOCUMENTATION: KUB today shows a stone in roughly the same position in the left mid ureter. Patient wants to proceed as scheduled. PREOP DIAGNOSIS: Refractory left ureteral calculus PLANNED PROCEDURE: Operation Date: 01/05/22 08:05 Proposed Procedures p Cystoscopy 63773/99286-56/n20.1(Not Applicable) - Bubba Crow MD s Retrograde Pyelogram(Left) - MD janay Mayes Ureteroscopy(Left) - MD janay Mayes Laser Lithotripsy(Left) - MD janay Mayes Ureteral Stent Placement(Left) - Bubba Crow MD
--- NOTE | 2022-01-05 08:26 | PM.OP ---
Operative Report Date of procedure: January 05, 2022 Pre-op diagnosis: Preop Diagnosis Refractory left ureteral calculus Post-op diagnosis: Refractory left ureteral calculus Procedure done: 1. Cystoscopy with left retrograde ureteropyelogram 2. Left ureterorenoscopy, laser lithotripsy, stent (6 Venezuelan by 24 cm double-pigtail without string) Specimens removed/disposition: Stone fragments Pathology: Stone fragments Surgeon: Mignon Outsole Scheduler: General Estimated blood loss: Minimal Urine output: Not measured Complications: None Findings: Stone in the expected position. Easily accessed with ureteroscopy. Fragmented with 365 ?m thulium superpulse laser fiber. Brief History: Ms. Grady is a very pleasant 36-year-old white female recently diagnosed with a left ureteral calculus causing obstruction. Stone failed to pass with time and she ultimately chose to proceed with intervention based on the severity of her symptoms, size of the stone, and the lack of progression on serial imaging. Procedure: After routine preoperative evaluation examination and obtaining of informed consent she was taken to the operating suite on where general anesthesia was administered without difficulty after appropriate timeout was performed, SCDs confirmed to be functioning, preoperative antibiotics administered, beta-toyin protocol confirmed. Prepped and draped in usual sterile fashion in dorsolithotomy position paying careful attention to avoiding pressure points. 21 Venezuelan cystoscope with 30 degree lens was introduced into the urethra meatus and advanced into the bladder under videoscopy. The bladder was systematically examined and found to be within normal limits. An 8 Venezuelan cone-tip catheter was intubated to the left ureteral orifice for left retrograde ureteropyelogram demonstrating normal course and caliber of the ureter distal to the stone which was demonstrated is a filling defect in the expected position. The ureter proximal to the stone was dilated. No other filling defects were seen. Flexible tip guidewire was then advanced up the left ureter and secured to the drapes as a safety wire. A second guidewire was passed as a working wire. A 24 cm ureteral access sheath was advanced over the guidewire but would not easily advance up the ureter. For that reason the distal ureter was dilated with a 15 Venezuelan 4 cm balloon. A second attempt at passing the 24 cm ureteral access sheath was successful with easy advancement to just below the level of the stone and a 7.5 Venezuelan offset semirigid ureteroscope was then passed through the sheath over the wire to that position. It was discovered that the wire had pushed the stone up into the renal pelvis. For that reason the rigid ureteroscope was removed and a digital flexible scope was utilized instead. The scope was passed over the working wire easily into the kidney and the the wire was removed. The stone was identified in one of the calyces and easily fragmented with a 200 ?m thulium superpulse laser fiber into sand-like fragments some of which flushed through the sheath and out of the patient and some removed with a X catch basket along with some small blood clot. Specimens were sent for pathologic evaluation. No substantial fragments remained although there was still some very small or sand-like particles. The sheath was backed down to the hub of the scope and the scope was withdrawn with careful inspection of the ureter with no severe trauma identified. Cystoscope was then backloaded over the safety wire and a 6 Venezuelan by 24 cm double-pigtail stent without string was advanced over the guidewire into appropriate position as confirmed via fluoroscopy and cystoscopy. The bladder was drained. The stent was confirmed to be functioning. The procedure was completed. She tolerated procedure well without complications and was awakened in the operating room and returned to the recovery room in stable condition. Plans: 1. Anticipate discharge from outpatient surgery 2. Follow-up in approximately 1-2 weeks for cystoscopy and stent removal. No KUB necessary
[2022-01-05] MEDS: levofloxacin-dextrose 5 % 500 MG/100 ML PREMIX 100 MG IV (08:30)
--- NOTE | 2022-01-05 08:37 | SC_ITS ---
WS: [id number] INTRAOPERATIVE TECHNIQUE: 3 Spot fluoroscopic images for intraoperative purposes. FLUOROSCOPY TIME: 74.5 seconds CLINICAL INFORMATION: stone COMPARISON: None. FINDINGS: Deployment of LEFT double-J ureteral stent. LEFT ureteroscopy SC/C-arm FL for Urology IMPRESSION: Images obtained for intraoperative purposes.
--- NOTE | 2022-01-05 09:50 | SUR.OPER ---
0830 quarter size bruise noted on inner right knee when pt was moving from or gurney to or table.
--- NOTE | 2022-01-05 10:20 | ANES.PREANE2 ---
Pre-Anesthetic Assessment Height/Weight: Height 1.57 m Weight 113.398 kg Temp Pulse Resp BP Pulse Ox 98.6 F 88 18 135/104 96 01/05/22 06:46 01/05/22 06:46 01/05/22 07:54 01/05/22 06:46 01/05/22 07:54 Preop Diagnosis: Refractory left ureteral calculus Operation Date: 01/05/22 08:05 Proposed Procedures p Cystoscopy 35564/94076-95/n20.1(Not Applicable) - Bubba Crow MD s Retrograde Pyelogram(Left) - Bubba Crow MD s Ureteroscopy(Left) - Bubba Crow MD s Laser Lithotripsy(Left) - Bubba Crow MD s Ureteral Stent Placement(Left) - Bubba Crow MD Familial anesthetic complications: None Was Beta Luis M taken within 24 hours: Yes Was Clonidine taken within 24 hours: N/A Last intake: Intake Last Liquid Date 01/04/22 Last Liquid Time 23:00 Last Solid Date 01/04/22 Last Solid Time 18:00 Social Tobacco and No alcohol Exam alert, oriented x 3, clear to auscultation bilaterally and regular rate & rhythm Airway Submandibular: within normal limits Cervical ROM: within normal limits Mallampati: Class II Dentition: false Pulmonary Chronic Obstructive Pulmonary Disease CV/HEM Hypertension GI Gastroesophageal Reflux Disease Metabolic Diabetes Mellitus, Hyperlipidemia and Morbid Obesity Neuropsych Anxiety, Depression and Neuropathy Anesthetic Plan ASA status: 3 Anesthesia: General Medications/Allergies Home Medications Medication Instructions Recorded Confirmed Last Taken Type eplerenone 50 mg tablet (Inspra) 50 mg PO DAILY tab 12/11/19 01/05/22 01/04/22 06:00 History Articulating AFO #1 ea 10/28/20 01/03/22 Unknown Rx Diabetic Shoes #1 ea 10/28/20 01/03/22 Unknown Rx atorvastatin 40 mg tablet 40 mg PO DAILY 03/29/21 01/05/22 01/04/22 18:00 History pioglitazone 15 mg tablet 15 mg PO DAILY 03/29/21 01/05/22 01/04/22 06:00 History metoprolol succinate 100 mg 100 mg PO DAILY 05/11/21 01/05/22 01/04/22 18:00 History tablet,extended release 24 hr polyethylene glycol 3350 17 17 g PO BID #238 g 08/26/21 01/04/22 09/10/21 Rx gram/dose oral powder (Miralax) norethindrone (contraceptive) 0.35 See Rx Instructions .ROUTE 11/12/21 01/05/22 01/04/22 06:00 Rx mg tablet (Sharobel) .COMPLEX #84 tab pantoprazole 40 mg tablet,delayed See Rx Instructions .ROUTE 11/12/21 01/05/22 01/04/22 06:00 Rx release .COMPLEX #60 tab buspirone 15 mg tablet 15 mg PO BID #90 tab 12/21/21 01/05/22 01/04/22 18:00 Rx lamotrigine 100 mg tablet 100 mg PO BID #60 tab 12/21/21 01/05/22 01/04/22 06:00 Rx (Lamictal) ondansetron HCl 8 mg tablet 8 mg PO Q8H PRN #15 tab 12/24/21 01/05/22 01/04/22 13:00 Rx custom molded functional orthotics #1 ea 12/29/21 01/03/22 Unknown Rx hydrocodone 5 mg-acetaminophen 325 1 tab PO Q6H PRN 3 Days #12 tab 01/03/22 01/05/22 01/04/22 12:00 Rx mg tablet diazepam 10 mg tablet (Valium) 10 mg PO BID PRN 01/04/22 01/04/22 Unknown History escitalopram oxalate 20 mg tablet 20 mg PO .q am 01/04/22 01/05/22 01/04/22 06:00 History (Lexapro) Allergies Allergy/AdvReac Type Severity Reaction Status Date / Time contact metal agent Allergy Unknown Verified 01/05/22 06:47 Current Medications Generic Name Dose Route Start Last Admin Trade Name Freq PRN Reason Stop Dose Admin Fentanyl 50 mcg 01/05/22 06:37 01/05/22 07:54 Fentanyl 50 Mcg/Ml Inj 2ml IVP 50 mcg Q10M PRN Administration Preop Pain Sodium Chloride 1,000 mls @ 30 mls/hr 01/05/22 06:45 01/05/22 07:09 Sodium Chloride 0.9% IV 01/06/22 06:44 30 mls/hr .Q24H MARISOL Administration Ondansetron HCl 4 mg 01/05/22 06:37 01/05/22 07:53 Ondansetron 2 Mg/Ml Sdv 2 Ml IVP 4 mg Q5M PRN Administration NAUSEA AND VOMITING PFSH Anesthesia Medical History Bleeding per rectum Breast cyst Colon polyp Diabetes Generalized anxiety disorder Hypercholesteremia Hypersomnia, unspecified Hypertension Major depressive disorder, recurrent, moderate No pertinent past medical history neghx: thyroid,dvt/pe PCP: Dr. Stalpes PCOS (polycystic ovarian syndrome) Post-traumatic stress disorder, chronic Psychiatric care Surgical History History of cervical cerclage 2006 2007 History of gastric surgery (~2018) Sleeve-- Giurgius Hx of carpal tunnel repair L hand Hx of section (~2007) Hx of dilation and curettage 2002- 2003- SAB Hx of removal of cyst (~03/2021) cyst on L breast Family History Mother , AT AGE 38 Diabetes Hypertension Uterine cancer dx age 30--had hysterectomy Hypercholesteremia Sepsis Father , AT 74 Hypertension Heart disease Hypercholesteremia Family/Other Breast cancer Maternal aunt Social History Smoking and tobacco status: never smoked Second hand smoke exposure: Yes Alcohol intake: never Marital status: Current occupational status: disabled History of recent travel: No Female Reproductive History Date of last menstrual period: 08/27/20 Data Anesthesia Cardiac Studies: No Data to Display
--- NOTE | 2022-01-05 10:23 | ANE.PACU2 ---
Inpatient post-anesthesia follow up: Airway intact: Yes Vital signs: Temperature 98.6 F Pulse Rate 88 Respiratory Rate 18 Blood Pressure 135/104 Pulse Oximetry 96 Oxygen Delivery Me thod Room Air Oxygen Flow Rate 6 Fraction of Inspir ed Oxygen Hydration adequate: Yes Nausea and vomiting: No Pain level: 2 Mental status: Baseline
[2022-01-05] MEDS: HYDROcodone-acetaminophen 5-325 mg Tablet 1 TAB PO (11:50)
[2022-01-09 22:48] LABS: Stone Source LEFT URETER
== END 2022-01-05 11:57 | disposition home or self-care (01) ==
PROVIDERS: Anesthesiology; PCP Family Medicine; Visit Provider Urology
PROC: 0TJB8ZZ Inspection of Bladder, Via Natural or Artificial Opening Endoscopic (ICD-10-PCS; CPT 52000; principal; 2022-01-05 07:55)
PROC: (CPT 74420; 2022-01-05 07:55)
PROC: 0TJ98ZZ Inspection of Ureter, Via Natural or Artificial Opening Endoscopic (ICD-10-PCS; CPT 52351; 2022-01-05 07:55)
PROC: (CPT 52356; 2022-01-05 07:55)
PROC: (CPT 50605; 2022-01-05 07:55)
DX: N20.1 Calculus of ureter (principal); J44.9 Chronic obstructive pulmonary disease, unspecified; I10 Essential (primary) hypertension; K21.9 Gastro-esophageal reflux disease without esophagitis; E78.5 Hyperlipidemia, unspecified; E66.01 Morbid (severe) obesity due to excess calories; Z68.42 Body mass index [BMI] 45.0-49.9, adult; E11.40 Type 2 diabetes mellitus with diabetic neuropathy, unspecified; E78.00 Pure hypercholesterolemia, unspecified; F33.9 Major depressive disorder, recurrent, unspecified
CPT/HCPCS: 52356; 36416; 74018; 76000; 81025; 82365; 82962; 84703; 88300; 96372; C2625; J1100; J1956; J2250; J2405; J2704; J2710; J3010; J3490; J7030

== ENCOUNTER → 2022-01-31 10:14 | Outpatient (BNVA) | payer MEDICAID, SELFPAY | PROVIDERS: PCP Family Medicine; Visit Provider Nurse Practitioner Psychiatric/Mental Health | DX: F43.12 Post-traumatic stress disorder, chronic (principal); F41.1 Generalized anxiety disorder; F33.1 Major depressive disorder, recurrent, moderate | CPT/HCPCS: 99214 ==

== ENCOUNTER → 2022-02-01 07:39 | Outpatient (BNVA) | payer MEDICAID, SELFPAY | PROVIDERS: PCP Family Medicine; Visit Provider Urology | DX: N20.1 Calculus of ureter (principal); Z96.0 Presence of urogenital implants | CPT/HCPCS: 81003 ==

== ENCOUNTER 2022-02-07 06:51 | Outpatient (CLI) | payer MEDICAID, SELFPAY ==
--- NOTE | 2022-02-07 07:19 | MR_ITS ---
WS: [id number] MRI CERVICAL SPINE NONCONTRAST TECHNIQUE: Sagittal T1, T2 and STIR imaging. Axial T2, gradient, and fiesta imaging. CLINICAL INFORMATION: ANESTHESIA OF SKIN COMPARISON: None. FINDINGS: Some images are degraded due to patient motion. Straightening of the normal cervical lordosis. Cord signal is normal. No high-grade central canal roxy rowing. C2-C3: Normal. C3-C4: No significant disc bulging. Spinal canal and foramen are patent. C4-C5: No significant disc bulging. Mild LEFT and no significant RIGHT foraminal narrowing. Moderate LEFT facet arthropathy. Spinal canal is patent. C5-C6: Mild disc osteophytic ridging. Mild facet arthropathy. Mild bilateral bony foraminal narrowing . Spinal canal is patent. C6-C7: Mild disc osteophytic ridging. Mild facet arthropathy. Foramen are patent. C7-T1: No significant disc bulging. Mild LEFT and no significant RIGHT foraminal narrowing. Spinal ca nal is patent. Visualized brain stem structures: Normal. Prevertebral soft tissues: Normal. MR/MR cervical spin wo con* [id number] IMPRESSION: 1. Straightening of the normal cervical lordosis. Cord signal is normal. 2. No high-grade central canal narrowing. 3. Mild bony foraminal narrowing LEFT C4-C5, bilateral C5-C6 worse in the LEFT , and LEFT C7-T1. 4. Moderate LEFT facet arthropathy C4-C5.
== END 2022-02-07 06:52 | disposition home or self-care (01) ==
LOC: RAD 06:52
PROVIDERS: PCP Family Medicine; Visit Provider Specialist
DX: R20.0 Anesthesia of skin (principal); M47.812 Spondylosis without myelopathy or radiculopathy, cervical region; M77.8 Other enthesopathies, not elsewhere classified; G25.0 Essential tremor; L29.9 Pruritus, unspecified; Z87.891 Personal history of nicotine dependence
CPT/HCPCS: 72141; 99204

== ENCOUNTER → 2022-02-14 11:35 | Outpatient (BNVA) | payer MEDICAID, SELFPAY | PROVIDERS: PCP Family Medicine; Visit Provider Social Worker | DX: F43.12 Post-traumatic stress disorder, chronic (principal); F41.1 Generalized anxiety disorder; F33.1 Major depressive disorder, recurrent, moderate | CPT/HCPCS: 90837; 90834 ==

== ENCOUNTER → 2022-02-28 14:20 | Outpatient (BNVA) | payer MEDICAID, SELFPAY | PROVIDERS: PCP Family Medicine; Visit Provider Social Worker | DX: F43.12 Post-traumatic stress disorder, chronic (principal); F41.1 Generalized anxiety disorder; F33.1 Major depressive disorder, recurrent, moderate | CPT/HCPCS: 90837; 90834 ==

== ENCOUNTER → 2022-03-09 11:20 | Outpatient (BNVA) | payer MEDICAID, SELFPAY | PROVIDERS: PCP Family Medicine; Referring Provider Family Medicine; Visit Provider Surgery | DX: K62.5 Hemorrhage of anus and rectum (principal) | CPT/HCPCS: 99203 ==

== ENCOUNTER → 2022-03-11 11:01 | Outpatient (BNVA) | payer MEDICAID, SELFPAY | PROVIDERS: PCP Family Medicine; Visit Provider Social Worker | DX: F33.1 Major depressive disorder, recurrent, moderate (principal); F41.1 Generalized anxiety disorder; F43.12 Post-traumatic stress disorder, chronic | CPT/HCPCS: 90834 ==

== ENCOUNTER → 2022-03-18 11:26 | Outpatient (BNVA) | payer MEDICAID, SELFPAY | PROVIDERS: PCP Family Medicine; Visit Provider Social Worker | DX: F33.1 Major depressive disorder, recurrent, moderate (principal); F41.1 Generalized anxiety disorder; F43.12 Post-traumatic stress disorder, chronic | CPT/HCPCS: 90837; 90834 ==

== ENCOUNTER → 2022-03-25 11:08 | Outpatient (BNVA) | payer MEDICAID, SELFPAY | PROVIDERS: PCP Family Medicine; Visit Provider Social Worker | DX: F33.1 Major depressive disorder, recurrent, moderate (principal); F41.1 Generalized anxiety disorder; F43.12 Post-traumatic stress disorder, chronic | CPT/HCPCS: 90837; 90834 ==

== ENCOUNTER → 2022-04-01 10:32 | Outpatient (BNVA) | payer MEDICAID, SELFPAY | PROVIDERS: PCP Family Medicine; Visit Provider Social Worker | DX: F41.1 Generalized anxiety disorder (principal); F33.1 Major depressive disorder, recurrent, moderate; F43.12 Post-traumatic stress disorder, chronic | CPT/HCPCS: 90834 ==

== ENCOUNTER → 2022-04-04 10:07 | Outpatient (BNVA) | payer MEDICAID, SELFPAY | PROVIDERS: PCP Family Medicine; Visit Provider Nurse Practitioner Psychiatric/Mental Health | DX: F41.1 Generalized anxiety disorder (principal); F33.1 Major depressive disorder, recurrent, moderate; F43.12 Post-traumatic stress disorder, chronic | CPT/HCPCS: 99213 ==

== ENCOUNTER → 2022-04-15 11:08 | Outpatient (BNVA) | payer MEDICAID, SELFPAY | PROVIDERS: PCP Family Medicine; Visit Provider Social Worker | DX: F41.1 Generalized anxiety disorder (principal); F33.1 Major depressive disorder, recurrent, moderate; F43.12 Post-traumatic stress disorder, chronic | CPT/HCPCS: 90837; 90834 ==

== ENCOUNTER → 2022-04-28 12:10 | Outpatient (BNVA) | payer MEDICAID, SELFPAY | PROVIDERS: PCP Family Medicine; Visit Provider Social Worker | DX: F41.1 Generalized anxiety disorder (principal); F33.1 Major depressive disorder, recurrent, moderate; F43.12 Post-traumatic stress disorder, chronic | CPT/HCPCS: 90837; 90834 ==

== ENCOUNTER → 2022-05-04 09:21 | Outpatient (BNVA) | payer MEDICAID, SELFPAY | PROVIDERS: PCP Family Medicine; Visit Provider Social Worker | DX: F41.1 Generalized anxiety disorder (principal); F33.1 Major depressive disorder, recurrent, moderate; F43.12 Post-traumatic stress disorder, chronic | CPT/HCPCS: 90837; 90834 ==

== ENCOUNTER → 2022-05-12 09:00 | Outpatient (BNVA) | payer MEDICAID, SELFPAY | PROVIDERS: PCP Family Medicine; Visit Provider Social Worker | DX: F41.1 Generalized anxiety disorder (principal); F33.1 Major depressive disorder, recurrent, moderate; F43.12 Post-traumatic stress disorder, chronic | CPT/HCPCS: 90837; 90834 ==

== ENCOUNTER 2022-05-19 06:33 | Day surgery (SDC) | payer MEDICAID, SELFPAY ==
[2022-05-19 06:59] VITALS: BP 137/71; PULSE 78; RESP 18; TEMP 36.4; O2SAT 94
[2022-05-19] MEDS: sodium chloride 0.9% 1,000 ML 30 ML IV (07:07)
[2022-05-19 07:13] LABS: OR HCG Qualitative Urine Negative (Negative)
--- NOTE | 2022-05-19 07:43 | P.ANESASSM_ITS ---
Pre-Anesthetic Assessment Height/Weight: Height 1.57 m Temp Pulse Resp BP Pulse Ox 97.6 F 78 18 137/71 94 05/19/22 06:59 05/19/22 06:59 05/19/22 06:59 05/19/22 06:59 05/19/22 06:59 Preop Diagnosis: Blood in stool Operation Date: 05/19/22 08:30 Proposed Procedures p EGD 56442/k62.5(Not Applicable) - Bernardo Norton MD Familial anesthetic complications: None Was Beta Luis M taken within 24 hours: Yes Was Clonidine taken within 24 hours: N/A Last intake: Intake Last Liquid Date 05/18/22 Last Liquid Time 22:00 Last Solid Date 05/18/22 Last Solid Time 22:00 Social No alcohol and No tobacco Exam alert, oriented x 3, clear to auscultation bilaterally and regular rate & rhythm Airway Submandibular: within normal limits Cervical ROM: within normal limits Mallampati: Class II Dentition: false CV/HEM Hypertension GI Gastroesophageal Reflux Disease Metabolic Diabetes Mellitus [facility] Osteoarthritis/DJD Neuropsych Anxiety, Depression and Neuropathy Anesthetic Plan ASA status: 3 Anesthesia: MAC Medications/Allergies Home Medications Medication Instructions Recorded Confirmed Last Taken Type eplerenone 50 mg tablet (Inspra) 50 mg PO DAILY tab 12/11/19 05/17/22 05/18/22 History Articulating AFO #1 ea 10/28/20 03/09/22 05/18/22 Rx Diabetic Shoes #1 ea 10/28/20 03/09/22 05/18/22 Rx atorvastatin 40 mg tablet 40 mg PO DAILY 03/29/21 05/17/22 05/18/22 History pioglitazone 15 mg tablet 15 mg PO DAILY 03/29/21 05/17/22 05/18/22 History metoprolol succinate 100 mg 100 mg PO DAILY 05/11/21 05/17/22 05/18/22 19:00 History tablet,extended release 24 hr polyethylene glycol 3350 17 17 g PO BID #238 g 08/26/21 05/17/22 05/18/22 Rx gram/dose oral powder (Miralax) ondansetron HCl 8 mg tablet 8 mg PO Q8H PRN #15 tab 12/24/21 05/17/22 05/18/22 Rx custom molded functional orthotics #1 ea 01/07/22 03/09/22 05/18/22 Rx escitalopram oxalate 20 mg tablet 20 mg PO .q am #30 tab 04/04/22 05/17/22 05/18/22 Rx (Lexapro) lamotrigine 100 mg tablet 200 mg PO .q hs #60 tab 04/04/22 05/17/22 05/18/22 Rx (Lamictal) norethindrone (contraceptive) 0.35 0.35 mg PO DAILY 05/17/22 05/17/22 05/18/22 History mg tablet (Sharobel) pantoprazole 40 mg tablet,delayed 40 mg PO BID 05/17/22 05/17/22 05/18/22 History release Allergies Allergy/AdvReac Type Severity Reaction Status Date / Time contact metal agent Allergy Unknown Verified 04/04/22 10:31 Current Medications Generic Name Dose Route Start Last Admin Trade Name Freq PRN Reason Stop Dose Admin Sodium Chloride 1,000 mls @ 30 mls/hr 05/19/22 06:45 05/19/22 07:07 Sodium Chloride 0.9% IV 05/20/22 06:44 30 mls/hr .Q24H MARISOL Administration PFSH Anesthesia Medical History Bleeding per rectum Breast cyst Colon polyp Diabetes Generalized anxiety disorder Hypercholesteremia Hypersomnia, unspecified Hypertension Major depressive disorder, recurrent, moderate No pertinent past medical history neghx: thyroid,dvt/pe PCP: Dr. Staples PCOS (polycystic ovarian syndrome) Post-traumatic stress disorder, chronic Psychiatric care Surgical History History of cervical cerclage 2006 2007 History of gastric surgery (~2018) Sleeve-- Giurgius Hx of carpal tunnel repair L hand Hx of section (~2007) Hx of dilation and curettage 2002- 2003- Hx of removal of cyst (~03/2021) cyst on L breast Family History Mother , AT AGE 38 Diabetes Hypertension Uterine cancer dx age 30--had hysterectomy Hypercholesteremia Sepsis Father , AT 74 Hypertension Heart disease Hypercholesteremia Family/Other Breast cancer Maternal aunt Social History (Updated 04/04/22 @ 10:34 by Gabriela Silver LPN) Smoking and tobacco status: current every day smoker smokeless tobacco Smokeless tobacco user: other Smokeless tobacco details: nicotine pouches Second hand smoke exposure: Yes Alcohol intake: never Marital status: Current occupational status: disabled History of recent travel: No Female Reproductive History Date of last menstrual period: 08/27/20 Data Anesthesia Cardiac Studies: No Data to Display
--- NOTE | 2022-05-19 08:31 | W.PM.OPSFHP ---
Same Day Surgery H&P Indication for Procedure/HPI DATE OF PROCEDURE: May 19, 2022 CHIEF COMPLAINT/INDICATIONFOR SURGICAL PROCEDURE: Blood in stool PREOP DIAGNOSIS: Blood in stool PLANNED PROCEDURE: Operation Date: 05/19/22 08:30 Proposed Procedures p EGD 03205/k62.5(Not Applicable) - Bernardo Norton MD 03/09/2022 Patient continues to have blood in stool and recently had a colonoscopy that showed rectal polyp otherwise normal findings.? Patient denies any hematemesis or NSAID intake.? She has been losing weight with a current weight of 228 pounds and a BMI 42. 05/19/2022 Patient comes today for diagnostic EGD status post gastric sleeve ROS All systems have been reviewed negative except as for the above or per problem list. Medications/Allergies* Home Medications Medication Instructions Recorded Confirmed Type eplerenone 50 mg tablet (Inspra) 50 mg PO DAILY tab 12/11/19 05/17/22 History atorvastatin 40 mg tablet 40 mg PO DAILY 03/29/21 05/17/22 History pioglitazone 15 mg tablet 15 mg PO DAILY 03/29/21 05/17/22 History metoprolol succinate 100 mg 100 mg PO DAILY 05/11/21 05/17/22 History tablet,extended release 24 hr norethindrone (contraceptive) 0.35 0.35 mg PO DAILY 05/17/22 05/17/22 History mg tablet (Sharobel) pantoprazole 40 mg tablet,delayed 40 mg PO BID 05/17/22 05/17/22 History release Allergies/Adverse Reactions Allergy/AdvReac Type Severity Reaction Status Date / Time contact metal agent Allergy Unknown Verified 05/19/22 08:32 Current Medications: Generic Name Dose Route Start Last Admin Trade Name Freq PRN Reason Stop Dose Admin Sodium Chloride 1,000 mls @ 30 mls/hr 05/19/22 06:45 05/19/22 07:07 Sodium Chloride 0.9% IV 05/20/22 06:44 30 mls/hr .Q24H MARISOL Administration Pertinent History/Comorbid Conditions* Medical History (Updated 02/07/22 @ 12:36 by Ashley Martinez MD) Bleeding per rectum Breast cyst Colon polyp Diabetes Generalized anxiety disorder Hypercholesteremia Hypersomnia, unspecified Hypertension Major depressive disorder, recurrent, moderate No pertinent past medical history neghx: thyroid,dvt/pe PCP: Dr. Staples PCOS (polycystic ovarian syndrome) Post-traumatic stress disorder, chronic Psychiatric care Surgical History (Updated 05/12/21 @ 09:11 by Araceli Mesa APN, [email or web address]) History of cervical cerclage 2006 2007 History of gastric surgery (~2018) Sleeve-- Giurgius Hx of carpal tunnel repair L hand Hx of section (~2007) Hx of dilation and curettage 2002- SAB 2003- SAB Hx of removal of cyst (~03/2021) cyst on L breast Family History (Updated 12/24/21 @ 08:15 by Barbie Silva LPN) Father, AT 74 Mother, AT AGE 38 Diabetes Mother Heart disease Father Hypercholesteremia Mother Father Breast cancer Family/Other Maternal aunt Sepsis Mother Hypertension Mother Father Uterine cancer Mother dx age 30--had hysterectomy Social History Smoking and tobacco status: current every day smoker smokeless tobacco Smokeless tobacco user: other Smokeless tobacco details: nicotine pouches Second hand smoke exposure: Yes Alcohol intake: never Marital status: Current occupational status: disabled History of recent travel: No Pertinent Exam Findings alert, oriented x 3, regular rate & rhythm and procedure specific exam findings (Abdominal examination nontender nondistended soft) Recommendations Surgery/Procedure today (Diagnostic EGD with possible biopsy) Coding Level of Care Code Acute Marketing Secretary for Sandra Chavira
[2022-05-19 08:41] VITALS: BMI 41.1
[2022-05-19 08:53] VITALS: BP 130/95; PULSE 68; RESP 16; TEMP 36.1; O2SAT 96
[2022-05-19 09:01] VITALS: BP 119/72; PULSE 74; RESP 18; O2SAT 97
--- NOTE | 2022-05-19 10:15 | ANE.PACU2 ---
Inpatient post-anesthesia follow up: Airway intact: Yes Vital signs: Temperature 97.0 F Pulse Rate 74 Respiratory Rate 18 Blood Pressure 119/72 Pulse Oximetry 97 Oxygen Delivery Me thod Room Air Oxygen Flow Rate 4 Fraction of Inspir ed Oxygen Hydration adequate: Yes Nausea and vomiting: No Pain level: 1 Mental status: Baseline
== END 2022-05-19 09:24 | disposition home or self-care (01) ==
PROVIDERS: Anesthesiology; PCP Family Medicine; Visit Provider Surgery
PROC: 0DJ08ZZ Inspection of Upper Intestinal Tract, Via Natural or Artificial Opening Endoscopic (ICD-10-PCS; CPT 43235; principal; 2022-05-19 08:30)
DX: K62.5 Hemorrhage of anus and rectum (principal); Z86.010 Personal history of colon polyps; K21.00 Gastro-esophageal reflux disease with esophagitis, without bleeding; Z98.84 Bariatric surgery status; E11.9 Type 2 diabetes mellitus without complications; F41.1 Generalized anxiety disorder; E78.00 Pure hypercholesterolemia, unspecified; I10 Essential (primary) hypertension; E28.2 Polycystic ovarian syndrome; F17.290 Nicotine dependence, other tobacco product, uncomplicated
CPT/HCPCS: 43239; 81025; 84703; 88305; J2704; J7030

== ENCOUNTER → 2022-07-26 10:38 | Outpatient (BNVA) | payer MEDICAID, SELFPAY | PROVIDERS: PCP Family Medicine; Visit Provider Nurse Practitioner Psychiatric/Mental Health | DX: Z03.89 Encounter for observation for other suspected diseases and conditions ruled out (principal) | CPT/HCPCS: 80053; 84439; 84443 ==

== ENCOUNTER 2022-08-04 09:52 | Outpatient (CLI) | payer MEDICAID, SELFPAY ==
--- NOTE | 2022-08-04 10:03 | XR_ITS ---
WS: [id number] KUB, AP view, 08/04/2022 Clinical Data: N20.1 - Calculus of ureter Comparison: KUB, 01/05/2022. Findings: No abnormal intraabdominal masses or calcifications are seen. There is no dilatated small bowel or ev idence of obstruction. There are upper abdominal clips overlying the T11 vertebra. There is fecal material in the transverse colon. XR/XR KUB [id number] Impression: Negative KUB.
== END 2022-08-04 09:53 | disposition home or self-care (01) ==
PROVIDERS: PCP Family Medicine; Visit Provider Urology
DX: N20.1 Calculus of ureter (principal)
CPT/HCPCS: 74018

== ENCOUNTER 2022-08-04 11:26 | Outpatient (CLI) | payer MEDICAID, SELFPAY ==
--- NOTE | 2022-08-03 13:22 | PC.NURSE ---
pt only held metoprolol for 24 hrs. will be rescheduled for tomorrow 08/04/22
--- NOTE | 2022-08-04 11:33 | ECG_ITS ---
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 Interpretive Statements NAME OF STUDY: TREADMILL STRESS TEST INDICATION: [Chest Pain, ] EXERCISE DATA: The patient was exercised by Luke protocol. Baseline heart rate was 77 beats per minute. Baseline blood pressure was 102/79 millimeters of mercury. Target heart rate was 154 beats per minute. Maximum heart rate achieved was 160 which was 103% of the target heart rate. Maximum blood pressure was 167/77 millimeters of mercury. Total exercise time was 4 minutes 59 seconds. Maximum METs achieved was 7.The reason for ending the test was maximal effort achieved. The patient complained of shortness of breath during the stress test, which then resolved at the end of the test. ELECTROCARDIOGRAM: BASELINE: Showed sinus rhythm, left axis deviation, no significant ST-T changes at the baseline noted. [] EXERCISE: At the peak exercise level, [] No significant ST-T changes suggestive of ischemia noted. [] RECOVERY: During the recovery period, heart rate dropped appropriately. No significant ST-T changes in the recovery suggestive of ischemia noted. [] CONCLUSION: 1. Exercise capacity fair 2. Heart rate response was appropriate 3. Blood pressure response was appropriate 4. Symptoms not suggestive of ischemia. 5. Stress test was negative for ischemia Electronically Signed On 08-21-2022 21:40:31 CDT by Rick Whitaker M.D. [email or web address]
[2022-08-04 12:51] VITALS: BP 105/80; PULSE 99; BMI 39.3
== END 2022-08-04 11:27 | disposition home or self-care (01) ==
LOC: CDL 11:26
PROVIDERS: PCP Family Medicine; Visit Provider Family Medicine
DX: R07.9 Chest pain, unspecified (principal); R06.02 Shortness of breath; N20.9 Urinary calculus, unspecified
CPT/HCPCS: 81003; 93017; 99213

== ENCOUNTER → 2023-04-10 09:39 | Outpatient (BNVA) | payer MEDICAID, SELFPAY | PROVIDERS: PCP Family Medicine; Visit Provider Internal Medicine | DX: E11.649 Type 2 diabetes mellitus with hypoglycemia without coma (principal); E78.00 Pure hypercholesterolemia, unspecified | CPT/HCPCS: 99204 ==

== ENCOUNTER 2023-04-17 08:20 | Outpatient (CLI) | payer MEDICAID, SELFPAY ==
[2023-04-17 09:18] LABS: Cortisol Random 14.41 ug/dL (2.47-19.5)
[2023-04-17 09:20] LABS: Alanine Aminotransferase 19 U/L (0-33); Albumin Level 3.9 g/dL (3.5-5.2); Alkaline Phosphatase 65 U/L (35-105); Anion Gap 15.3 (5-19); Aspartate Amino Transferase 17 U/L (0-32); Blood Urea Nitrogen 12 mg/dL (6-20); Calcium 9.3 mg/dL (8.5-10.5); Carbon Dioxide 28 mmol/L (22-29); Chloride 98 mmol/L (98-107); Chol HDL Ratio 6.64 mg/dL (0.0-4.40); Cholesterol 259 mg/dL (0-200); Free T4 Free Thyroxine 0.86 ng/dL (0.82-1.77); Globulin 3.5 g/dL (1.3-4.6); Glomerular Filtration Rate 79.9 mL/min (90-130); Glucose 89 mg/dL (65-115); HDL Cholesterol 39 mg/dL (60-100); LDL Cholesterol Calculated 181 mg/dL (50-129); LDL HDL Ratio 4.64 RATIO (0.00-3.22); Osmolality Calculated 283 mOsm/kg (285-295); Potassium 4.3 mmol/L (3.5-5.1); Sodium 137 mmol/L (136-145); Thyroid Stimulating Hormone 1.74 uIU/mL (0.27-4.20); Total Bilirubin 0.3 mg/dL (0.15-1.2); Total Protein 7.4 g/dL (6.6-8.7); Triglycerides 194 mg/dL (0-150)
[2023-04-17 09:24] LABS: Estmated Average Glucose 123; Hemoglobin A1C 5.9 % (4.0-6.0)
[2023-04-17 09:35] LABS: Creatinine Urine, Random 189 mg/dL (28-217); Microalbum Creatinine Ratio Ur 5 mg/dL (0-20); Microalbumin Random Urine 1 ug/dL (0-20)
== END 2023-04-17 08:21 | disposition home or self-care (01) ==
PROVIDERS: PCP Family Medicine; Visit Provider Internal Medicine
DX: E11.649 Type 2 diabetes mellitus with hypoglycemia without coma (principal); E78.00 Pure hypercholesterolemia, unspecified
CPT/HCPCS: 36415; 80053; 80061; 82044; 82533; 83036; 84439; 84443; 99214

== ENCOUNTER 2023-07-10 14:11 | Outpatient (CLI) | payer MEDICAID, SELFPAY ==
--- NOTE | 2023-07-10 14:17 | MM_ITS ---
WS: [id number] BILATERAL 3D TOMOSYNTHESIS DIGITAL SCREENING MAMMOGRAPHY WITH CAD CLINICAL INFORMATION: SCREENING HISTORY: Screening mammogram. No current complaints. COMPARISON: 2020 TECHNIQUE: Bilateral CC and MLO views. FINDINGS: Scattered fibroglandular densities bilaterally. No suspicious focal mass, asymmetry, calcifications, or architectural distortion. No evidence of malignancy. Incidental punctate calcifications. IMPRESSION: MM/[place] [id number] BI-RADS: 2-Benign FOLLOW UP: 1 Year Follow-up Recommend return to annual screening mammography.
== END 2023-07-10 14:12 | disposition home or self-care (01) ==
LOC: RAD 14:13 → MOBLMAM 14:16
PROVIDERS: PCP Family Medicine; Visit Provider Physician Assistant
DX: Z12.31 Encounter for screening mammogram for malignant neoplasm of breast (principal)
CPT/HCPCS: 77063; 77067

== ENCOUNTER 2023-07-13 07:31 | Outpatient (CLI) | payer MEDICAID, SELFPAY ==
[2023-07-13 08:10] LABS: Chol HDL Ratio 7.54 mg/dL (0.0-4.40); Cholesterol 279 mg/dL (0-200); HDL Cholesterol 37 mg/dL (60-100); LDL Cholesterol Calculated 213 mg/dL (50-129); LDL HDL Ratio 5.76 RATIO (0.00-3.22); Triglycerides 145 mg/dL (0-150)
== END 2023-07-13 07:32 | disposition home or self-care (01) ==
PROVIDERS: PCP Family Medicine; Visit Provider Internal Medicine
DX: E16.2 Hypoglycemia, unspecified (principal)
CPT/HCPCS: 36415; 80061

== ENCOUNTER → 2023-07-17 09:02 | Outpatient (BNVA) | payer MEDICAID, SELFPAY | PROVIDERS: PCP Family Medicine; Visit Provider Internal Medicine | DX: E78.00 Pure hypercholesterolemia, unspecified; E11.649 Type 2 diabetes mellitus with hypoglycemia without coma | CPT/HCPCS: 99214 ==

== ENCOUNTER → 2023-11-13 09:51 | Outpatient (BNVA) | payer MEDICAID, SELFPAY | PROVIDERS: PCP Family Medicine; Visit Provider Internal Medicine | DX: E16.2 Hypoglycemia, unspecified; E78.00 Pure hypercholesterolemia, unspecified | CPT/HCPCS: 99214 ==

== ENCOUNTER 2024-02-05 05:57 | Outpatient (CLI) | payer MEDICAID, SELFPAY ==
[2023-11-22 10:03] VITALS: BP 127/88; BMI 44.0
[2024-02-05 07:10] LABS: Alanine Aminotransferase 17 U/L (0-33); Albumin Level 3.6 g/dL (3.5-5.2); Alkaline Phosphatase 55 U/L (35-105); Anion Gap 13.8 (5-19); Aspartate Amino Transferase 14 U/L (0-32); Blood Urea Nitrogen 14 mg/dL (6-20); Calcium 8.4 mg/dL (8.5-10.5); Carbon Dioxide 27 mmol/L (22-29); Chloride 103 mmol/L (98-107); Cholesterol 187 mg/dL (0-200); Globulin 2.9 g/dL (1.3-4.6); Glomerular Filtration Rate 110.7 mL/min (90-130); Glucose 84 mg/dL (65-115); HDL Cholesterol 34 mg/dL (60-100); LDL Cholesterol Calculated 124 mg/dL (50-129); LDL HDL Ratio 3.65 RATIO (0.00-3.22); Osmolality Calculated 288 mOsm/kg (285-295); Potassium 4.8 mmol/L (3.5-5.1); Sodium 139 mmol/L (136-145); Total Bilirubin 0.2 mg/dL (0.15-1.2); Total Protein 6.5 g/dL (6.6-8.7); Triglycerides 147 mg/dL (0-150)
[2024-02-05 07:12] LABS: Creatinine Urine, Random 238 mg/dL (28-217); Microalbumin Random Urine 10 ug/dL (0-20)
[2024-02-05 07:19] LABS: Microalbum Creatinine Ratio Ur 42 mg/dL (0-20)
[2024-02-05 08:27] LABS: Estmated Average Glucose 137; Hemoglobin A1C 6.4 % (4.0-6.0)
== END 2024-02-05 05:58 | disposition home or self-care (01) ==
PROVIDERS: PCP Family Medicine; Visit Provider Internal Medicine
DX: E11.9 Type 2 diabetes mellitus without complications (principal); E16.2 Hypoglycemia, unspecified; E78.00 Pure hypercholesterolemia, unspecified
CPT/HCPCS: 36415; 80053; 80061; 82044; 83036

== ENCOUNTER → 2024-02-12 08:47 | Outpatient (BNVA) | payer MEDICAID, SELFPAY ==
[2024-02-06 14:45] VITALS: BP 140/91; BMI 43.6
== END ==
PROVIDERS: PCP Family Medicine; Visit Provider Internal Medicine
DX: E16.2 Hypoglycemia, unspecified (principal); R73.03 Prediabetes; E78.00 Pure hypercholesterolemia, unspecified
CPT/HCPCS: 99214

== ENCOUNTER 2024-05-07 07:42 | Outpatient (CLI) | payer MEDICAID, SELFPAY ==
[2024-02-06 14:45] VITALS: BP 140/91; BMI 43.6
[2024-05-07 08:26] LABS: Estmated Average Glucose 134; Hemoglobin A1C 6.3 % (4.0-6.0)
[2024-05-07 08:29] LABS: Alanine Aminotransferase 8 U/L (0-33); Albumin Level 3.7 g/dL (3.5-5.2); Alkaline Phosphatase 54 U/L (35-105); Anion Gap 13.6 (5-19); Aspartate Amino Transferase 13 U/L (0-32); Blood Urea Nitrogen 14 mg/dL (6-20); Calcium 8.7 mg/dL (8.5-10.5); Carbon Dioxide 29 mmol/L (22-29); Chloride 98 mmol/L (98-107); Chol HDL Ratio 4.16 mg/dL (0.0-4.40); Cholesterol 179 mg/dL (0-200); Globulin 3.2 g/dL (1.3-4.6); Glomerular Filtration Rate 110.7 mL/min (90-130); Glucose 102 mg/dL (65-115); HDL Cholesterol 43 mg/dL (60-100); LDL Cholesterol Calculated 99 mg/dL (50-129); Osmolality Calculated 283 mOsm/kg (285-295); Potassium 4.6 mmol/L (3.5-5.1); Sodium 136 mmol/L (136-145); Total Bilirubin 0.2 mg/dL (0.15-1.2); Total Protein 6.9 g/dL (6.6-8.7); Triglycerides 187 mg/dL (0-150)
[2024-05-07 08:37] LABS: Creatinine Urine, Random 139 mg/dL (28-217); Microalbum Creatinine Ratio Ur 7 mg/dL (0-20); Microalbumin Random Urine 1 ug/dL (0-20)
== END 2024-05-07 07:43 | disposition home or self-care (01) ==
LOC: LAB 07:44
PROVIDERS: PCP Family Medicine; Visit Provider Internal Medicine
DX: E16.2 Hypoglycemia, unspecified (principal); E78.00 Pure hypercholesterolemia, unspecified
CPT/HCPCS: 36415; 80053; 80061; 82044; 83036

== ENCOUNTER → 2024-05-10 09:30 | Outpatient (BNVA) | payer MEDICAID, SELFPAY ==
[2024-05-08 11:29] VITALS: BP 131/86; BMI 44.6
== END ==
PROVIDERS: PCP Family Medicine; Visit Provider Internal Medicine
DX: E78.00 Pure hypercholesterolemia, unspecified (principal); E16.2 Hypoglycemia, unspecified
CPT/HCPCS: 99214

== ENCOUNTER 2024-12-07 16:54 | Emergency (ER) | payer MEDICAID, SELFPAY ==
[2024-05-08 11:29] VITALS: BP 131/86; BMI 44.6
[2024-12-07] VITALS (11 sets, daily range): BP systolic 137–169; BP diastolic 78–114; PULSE 67–73; RESP 16–18; TEMP 36.8; O2SAT 97–100; BMI 41.0
--- NOTE | 2024-12-07 17:06 | ED_ITS ---
Documented by User: Francisco Amado DO 12/09/24 06:10 HPI - Abdominal Pain 2 General: Chief Complaint: Abdominal Pain Stated Complaint: bowel pain Time Seen by Provider: 12/07/24 17:06 History of Present Illness: 39-year-old female presents emergency ro om with left-sided abdominal pain left flank pain that began 2 days ago. Pain radiates towards the umbilicus. Patient denies any hematochezia melena hematemesis or coffee-ground emesis did have a gastric sleeve about 4 years ago. Has not had any vomiting. No dysuria urgency or frequency. No hematuria has been noted however she states she is on her period so it was slightly difficult for her to tell. She been very nauseous but no vomiting or diarrhea. Associated Symptoms: Reports nausea; Denies chills, diarrhea, dysuria, fever(s) and vomiting Related Data Home Medications Medication Instructions Recorded Confirmed divalproex 500 mg tablet,extended 1,000 mg PO QAM 01/02/24 11/08/24 release 24 hr (Depakote ER) Previous Rx's Medication Instructions Recorded Articulating AFO #1 ea 10/28/20 Diabetic Shoes #1 ea 10/28/20 custom molded functional orthotics #1 ea 01/07/22 blood sugar diagnostic (OneTouch #100 ea 04/17/23 Verio test strips) blood-glucose meter (OneTouch #1 ea 04/17/23 Verio Flex Start kit) lancets (OneTouch UltraSoft #100 ea 04/17/23 Lancets) sertraline 100 mg tablet 200 mg (2 x 100 mg) PO .q am #60 06/03/24 tabs atorvastatin 40 mg tablet See Rx Instructions .Route 09/23/24 .COMPLEX #90 tabs ketorolac 10 mg tablet 10 mg PO TID PRN pain #10 tabs 12/07/24 ondansetron 4 mg disintegrating 4 mg PO Q6H PRN nausea and 12/07/24 tablet vomiting #14 tabs Allergies Allergy/AdvReac Type Severity Reaction Status Date / Time contact metal agent Allergy Unknown Verified 11/11/24 08:13 Review of Systems 2 Const: Denies: fever(s) or chills Card: Denies: chest pain Resp: Denies: dyspnea GI: Reports: abdominal pain and nausea; Denies: vomiting or diarrhea : Denies: dysuria, urinary frequency or urinary urgency Musc: Denies: neck pain or back pain Skin/Breast: Denies: rash PFSH ED 2 PFSH: Medical History Urolithiasis Colon polyp Bleeding per rectum Psychiatric care No pertinent past medical history neghx: thyroid,dvt/pe PCP: Dr. Staples Breast cyst PCOS (polycystic ovarian syndrome) Hypercholesteremia Diabetes Hypertension Hypersomnia, unspecified Post-traumatic stress disorder, chronic Generalized anxiety disorder Major depressive disorder, recurrent, moderate Surgical History Hx of removal of cyst (~03/2021) cyst on L breast History of gastric surgery (~2018) Sleeve-- Giurgius Hx of carpal tunnel repair L hand History of cervical cerclage 2006 2007 Hx of dilation and curettage 2002- SAB 2004- SAB Hx of section (~2007) Family History Mother , AT AGE 38 Diabetes Hypertension Uterine cancer dx age 30--had hysterectomy Hypercholesteremia Sepsis Father , AT 74 Hypertension Heart disease Hypercholesteremia Family/Other Breast cancer Maternal aunt Social History Smoking and tobacco/nicotine status: never used tobacco/nicotine Quit status (tobacco/nicotine): has quit using Year quit tobacco: 2017 Second hand smoke exposure: Yes Alcohol intake: never Substance/Drug Use: never Marital status: Current occupational status: disabled Physical Exam 2 Const: GENERAL APPEARANCE: cooperative ORIENTATION/CONSCIOUSNESS: Yes awake, Yes oriented to person, Yes oriented to place and Yes oriented to time HENMT: COMMON NORMALS: normocephalic, atraumatic and hearing grossly normal bilaterally HEAD & SCALP: normocephalic and atraumatic Resp: COMMON NORMALS: normal respiratory effort, No retractions, No use of accessory muscles and clear to auscultation bilaterally AUSCULTATION: clear to auscultation bilaterally Cardio: COMMON NORMALS: regular rate, regular rhythm and No murmurs present (Cardio) RATE: regular rate RHYTHM: regular rhythm GI: COMMON NORMALS: No hepatosplenomegaly present AUSCULTATION: Yes normoactive bowel sounds PALPATION: Yes Tenderness to palpation present (GI) Details: LLQ, No Guarding due to palpation present (GI) and Yes No hepatosplenomegaly present Extremity: COMMON NORMALS: normal to inspection, capillary refill normal, no clubbing, cyanosis or edema, no calf tenderness and no pedal edema Neuro: SENSORIUM/ORIENTATION: Yes oriented to person, Yes oriented to place and Yes oriented to time Skin: COMMON NORMALS: no rashes or lesions noted GENERAL SKIN EXAM: no rashes or lesions noted Course 2 Vital Signs: Vital signs: Vital Signs Temperature 98.3 F 12/07/24 16:56 Pulse Rate 73 12/07/24 21:01 Respiratory Rate 18 12/07/24 21:01 Blood Pressure 148/78 12/07/24 21:01 Pulse Oximetry 100 12/07/24 21:01 Oxygen Delivery Me thod Room Air 12/07/24 16:56 MDM - Abdominal Pain Medical Decision Making Care signed out to Dr. Kendall at change of shift. See final notes for diagnosis and disposition. 39-year-old female checked out to me at shift change. She has left-sided abdominal pain. Her CBC is normal. Her BMP is not remarkable. Liver enzymes are normal. Lipase is 53. She has hematuria, as she is on her period. No evidence of urinary tract infection. CT shows no acute pathology. She will be treated symptomatically. To return for worsening symptoms. Lab Data 12/07/24 17:14 12/07/24 17:14 Labs/Radiology: Radiology Impressions Abdomen/Pelvis CT 12/07/24 17:12 IMPRESSION: 1. Limited noncontrast examination without CT evidence of acute intra-abdominal or pelvic pathology. 2. Additional findings, as above. Laboratory Results WBC 10.92 10^3/uL (3.29-11.43) 12/07/24 17:14 RBC 5.39 10^6/uL (3.85-5.65) 12/07/24 17:14 Hgb 13.50 g/dL (11.27-16.99) 12/07/24 17:14 Hct 43.4 % (36-47) 12/07/24 17:14 MCV 80.5 fl (85-98) L 12/07/24 17:14 MCH 25.0 pg (27-33) L 12/07/24 17:14 MCHC 31.1 g/dL (30-55) 12/07/24 17:14 RDW 16.4 % (12.1-15.1) H 12/07/24 17:14 Plt Count 388 10^3/cmm (157-399) 12/07/24 17:14 MPV 9.0 fL (7.4-10.4) 12/07/24 17:14 Neut % (Auto) 60.6 % 12/07/24 17:14 Lymph % (Auto) 26.6 % 12/07/24 17:14 [place] % (Auto) 6.3 % 12/07/24 17:14 Eos % (Auto) 5.4 % 12/07/24 17:14 Baso % (Auto) 0.5 % 12/07/24 17:14 Neut # (Auto) 6.61 10^3/uL (1.8-7.7) 12/07/24 17:14 Lymph # (Auto) 2.9 10^3/uL (0.8-4.8) 12/07/24 17:14 [place] # (Auto) 0.7 10^3/uL (0.2-0.9) 12/07/24 17:14 Eos # (Auto) 0.6 10^3/uL (0.0-0.8) 12/07/24 17:14 Baso # (Auto) 0.1 10^3/uL (0.0-0.1) 12/07/24 17:14 Nucleated RBC % (auto) 0 % 12/07/24 17:14 Nucleated RBCs # 0.0 /100WBC 12/07/24 17:14 Sodium 135 mmol/L (136-145) L 12/07/24 17:14 Potassium 4.0 mmol/L (3.5-5.1) 12/07/24 17:14 Chloride 99 mmol/L (98-107) 12/07/24 17:14 Carbon Dioxide 27 mmol/L (22-29) 12/07/24 17:14 Anion Gap 13.0 (5-19) 12/07/24 17:14 BUN 14 mg/dL (6-20) 12/07/24 17:14 Creatinine 0.7 mg/dL (0.5-0.9) 12/07/24 17:14 GFR Calculation 92.2 mL/min (90-130) 12/07/24 17:14 Glucose 91 mg/dL (65-115) 12/07/24 17:14 Calculated Osmolality 280 mOsm/kg (285-295) L 12/07/24 17:14 Calcium 9.2 mg/dL (8.5-10.5) 12/07/24 17:14 Total Bilirubin 0.2 mg/dL (0.15-1.2) 12/07/24 17:14 AST 19 U/L (0-32) 12/07/24 17:14 ALT 21 U/L (0-33) 12/07/24 17:14 Alkaline Phosphatase 60 U/L (35-105) 12/07/24 17:14 Total Protein 7.3 g/dL (6.6-8.7) 12/07/24 17:14 Albumin 4.0 g/dL (3.5-5.2) 12/07/24 17:14 Globulin 3.3 g/dL (1.3-4.6) 12/07/24 17:14 Lipase 53 U/L (13-60) 12/07/24 17:14 HCG, Qual Negative (Negative) 12/07/24 17:14 Urine Color Red (Yellow) A 12/07/24 19:21 Urine Appearance Cloudy (CLEAR) A 12/07/24 19:21 Urine pH 6.5 (5-7) 12/07/24 19:21 Ur Specific [place] 1.023 (1.005-1.030) 12/07/24 19:21 Urine Protein 2+ (Negative) A 12/07/24 19:21 Urine Glucose (UA) Negative (Normal) 12/07/24 19:21 Urine Ketones Trace (Negative) 12/07/24 19:21 Urine Blood 3+ (Negative) A 12/07/24 19:21 Urine Nitrate Negative (Negative) 12/07/24 19:21 Urine Bilirubin Negative (Negative) 12/07/24 19: Urine Urobilinogen 1.0 mg/dL (Negative) 12/07/24 19:21 Ur Leukocyte Esterase Trace (Negative) A 12/07/24 19:21 Urine RBC >100 /hpf (0-2) H 12/07/24 19:21 Urine WBC 0-5 /hpf (0-5) 12/07/24 19:21 Ur Squamous Epith Cells 0-5 /hpf (0-5) 12/07/24 19:21 Amorphous Sediment Not Reportable 12/07/24 19:21 Urine Bacteria 1+ /hpf (NONE) H 12/07/24 19:21 Hyaline Casts 0-4 /lpf H 12/07/24 19:21 Discharge Plan Discharge Patient Disposition: Home Clinical Impression: Abdominal pain Qualifiers: Abdominal location: left lower quadrant Qualified Code(s): R10.32 - Left lower quadrant pain Condition: Stable Prescriptions: New ketorolac 10 mg tablet 10 mg PO TID PRN (Reason: pain) Qty: 10 0RF ondansetron 4 mg tablet,disintegrating 4 mg PO Q6H PRN (Reason: nausea and vomiting) Qty: 14 0RF No Action (DME) Articulating AFO See Rx Instructions .Route .MEDSUPPLY Qty: 1 0RF Rx Instructions: EDGAR custom made by [employer] ([facility] [place] Diabetic Shoes See Rx Instructions .Route .MEDSUPPLY Qty: 1 0RF Rx Instructions: As directed, with 3 pairs inserts sertraline 100 mg tablet 200 mg PO .q am Qty: 60 3RF Rx Instructions: Take two tablets by mouth every morning ([facility] [place] OneTouch Verio test strips Strip See Rx Instructions .Route Qty: 100 0RF Rx Instructions: Check up to twice daily ([facility] [place]) lancets [OneTouch UltraSoft Lancets] Misc See Rx Instructions .Route Qty: 100 0RF Rx Instructions: As directed ([facility] [place]) blood-glucose meter [OneTouch Verio Flex Start] Kit See Rx Instructions .Route Qty: 1 0RF Rx Instructions: As directed divalproex [Depakote ER] 500 mg tablet extended release 24 hr 1,000 mg PO QAM ([facility] [place]) custom molded functional orthotics See Rx Instructions .Route .MEDSUPPLY Qty: 1 0RF Rx Instructions: As directed atorvastatin 40 mg tablet See Rx Instructions .ROUTE .COMPLEX Qty: 90 0RF Dose Instruction: Take 1 tablet by mouth once daily Rx Instructions: Take 1 tablet by mouth once daily Discharge Orders: Discharge ED (Routine); Ordered 12/07/24 Ordered By: Enrrique Kendall Referrals: Branden Staples MD [Primary Care Provider] - 1-3 days Patient Instructions: Abdominal Pain (ED), Opioid Safety, Pain Management Activity Restrictions/Additional Instructions: Follow a liquid diet for the next 24 to 48 hours. As your pain improves, you may increase your diet. Medication as needed for symptoms. Take some [id number] stool softeners to relieve any constipation. Return for fever, vomiting liquids or medications, worsening pain despite treatment, other concerning symptoms. See your doctor next week Coding Level of Care Code ED Housing Case Manager for Chg Fwd Documented by User: Enrrique Kendall DO 12/07/24 21:10 HPI - Abdominal Pain 2 General: Chief Complaint: Abdominal Pain Stated Complaint: bowel pain Time Seen by Provider: 12/07/24 17:06 Related Data Home Medications Medication Instructions Recorded Confirmed divalproex 500 mg tablet,extended 1,000 mg PO QAM 01/02/24 11/08/24 release 24 hr (Depakote ER) Previous Rx's Medication Instructions Recorded Articulating AFO #1 ea 10/28/20 Diabetic Shoes #1 ea 10/28/20 custom molded functional orthotics #1 ea 01/07/22 blood sugar diagnostic (OneTouch #100 ea 04/17/23 Verio test strips) blood-glucose meter (OneTouch #1 ea 04/17/23 Verio Flex Start kit) lancets (OneTouch UltraSoft #100 ea 04/17/23 Lancets) sertraline 100 mg tablet 200 mg (2 x 100 mg) PO .q am #60 06/03/24 tabs atorvastatin 40 mg tablet See Rx Instructions .Route 09/23/24 .COMPLEX #90 tabs ketorolac 10 mg tablet 10 mg PO TID PRN pain #10 tabs 12/07/24 ondansetron 4 mg disintegrating 4 mg PO Q6H PRN nausea and 12/07/24 tablet vomiting #14 tabs Allergies Allergy/AdvReac Type Severity Reaction Status Date / Time contact metal agent Allergy Unknown Verified 11/11/24 08:13 PFSH ED 2 PFSH: Medical History Urolithiasis Colon polyp Bleeding per rectum Psychiatric care No pertinent past medical history neghx: thyroid,dvt/pe PCP: Dr. Staples Breast cyst PCOS (polycystic ovarian syndrome) Hypercholesteremia Diabetes Hypertension Hypersomnia, unspecified Post-traumatic stress disorder, chronic Generalized anxiety disorder Major depressive disorder, recurrent, moderate Surgical History Hx of removal of cyst (~03/2021) cyst on L breast History of gastric surgery (~2018) Sleeve-- Giurgius Hx of carpal tunnel repair L hand History of cervical cerclage 2006 2007 Hx of dilation and curettage 2002- SAB 2004- SAB Hx of section (~2007) Family History Mother , AT AGE 38 Diabetes Hypertension Uterine cancer dx age 30--had hysterectomy Hypercholesteremia Sepsis Father , AT 74 Hypertension Heart disease Hypercholesteremia Family/Other Breast cancer Maternal aunt Social History Smoking and tobacco/nicotine status: never used tobacco/nicotine Quit status (tobacco/nicotine): has quit using Year quit tobacco: 2017 Second hand smoke exposure: Yes Alcohol intake: never Substance/Drug Use: never Marital status: Current occupational status: disabled Course 2 Vital Signs: Vital signs: Vital Signs Temperature 98.3 F 12/07/24 16:56 Pulse Rate 73 12/07/24 21:01 Respiratory Rate 18 12/07/24 21:01 Blood Pressure 148/78 12/07/24 21:01 Pulse Oximetry 100 12/07/24 21:01 Oxygen Delivery Me thod Room Air 12/07/24 16:56 MDM - Abdominal Pain Medical Decision Making 39-year-old female checked out to hi at shift change. She has left-sided abdominal pain. Her CBC is normal. Her BMP is not remarkable. Liver enzymes are normal. Lipase is 53. She has hematuria, as she is on her period. No evidence of urinary tract infection. CT shows no acute pathology. She will be treated symptomatically. To return for worsening symptoms. Lab Data 12/07/24 17:14 12/07/24 17:14 Labs/Radiology: Radiology Impressions Abdomen/Pelvis CT 12/07/24 17:12 IMPRESSION: 1. Limited noncontrast examination without CT evidence of acute intra-abdominal or pelvic pathology. 2. Additional findings, as above. Laboratory Results WBC 10.92 10^3/uL (3.29-11.43) 12/07/24 17:14 RBC 5.39 10^6/uL (3.85-5.65) 12/07/24 17:14 Hgb 13.50 g/dL (11.27-16.99) 12/07/24 17:14 Hct 43.4 % (36-47) 12/07/24 17:14 MCV 80.5 fl (85-98) L 12/07/24 17:14 MCH 25.0 pg (27-33) L 12/07/24 17:14 MCHC 31.1 g/dL (30-55) 12/07/24 17:14 RDW 16.4 % (12.1-15.1) H 12/07/24 17:14 Plt Count 388 10^3/cmm (157-399) 12/07/24 17:14 MPV 9.0 fL (7.4-10.4) 12/07/24 17:14 Neut % (Auto) 60.6 % 12/07/24 17:14 Lymph % (Auto) 26.6 % 12/07/24 17:14 [place] % (Auto) 6.3 % 12/07/24 17:14 Eos % (Auto) 5.4 % 12/07/24 17:14 Baso % (Auto) 0.5 % 12/07/24 17:14 Neut # (Auto) 6.61 10^3/uL (1.8-7.7) 12/07/24 17:14 Lymph # (Auto) 2.9 10^3/uL (0.8-4.8) 12/07/24 17:14 [place] # (Auto) 0.7 10^3/uL (0.2-0.9) 12/07/24 17:14 Eos # (Auto) 0.6 10^3/uL (0.0-0.8) 12/07/24 17:14 Baso # (Auto) 0.1 10^3/uL (0.0-0.1) 12/07/24 17:14 Nucleated RBC % (auto) 0 % 12/07/24 17:14 Nucleated RBCs # 0.0 /100WBC 12/07/24 17:14 Sodium 135 mmol/L (136-145) L 12/07/24 17:14 Potassium 4.0 mmol/L (3.5-5.1) 12/07/24 17:14 Chloride 99 mmol/L (98-107) 12/07/24 17:14 Carbon Dioxide 27 mmol/L (22-29) 12/07/24 17:14 Anion Gap 13.0 (5-19) 12/07/24 17:14 BUN 14 mg/dL (6-20) 12/07/24 17:14 Creatinine 0.7 mg/dL (0.5-0.9) 12/07/24 17:14 GFR Calculation 92.2 mL/min (90-130) 12/07/24 17:14 Glucose 91 mg/dL (65-115) 12/07/24 17:14 Calculated Osmolality 280 mOsm/kg (285-295) L 12/07/24 17:14 Calcium 9.2 mg/dL (8.5-10.5) 12/07/24 17:14 Total Bilirubin 0.2 mg/dL (0.15-1.2) 12/07/24 17:14 AST 19 U/L (0-32) 12/07/24 17:14 ALT 21 U/L (0-33) 12/07/24 17:14 Alkaline Phosphatase 60 U/L (35-105) 12/07/24 17:14 Total Protein 7.3 g/dL (6.6-8.7) 12/07/24 17:14 Albumin 4.0 g/dL (3.5-5.2) 12/07/24 17:14 Globulin 3.3 g/dL (1.3-4.6) 12/07/24 17:14 Lipase 53 U/L (13-60) 12/07/24 17:14 HCG, Qual Negative (Negative) 12/07/24 17:14 Urine Color Red (Yellow) A 12/07/24 19:21 Urine Appearance Cloudy (CLEAR) A 12/07/24 19:21 Urine pH 6.5 (5-7) 12/07/24 19:21 Ur Specific [place] 1.023 (1.005-1.030) 12/07/24 19:21 Urine Protein 2+ (Negative) A 12/07/24 19:21 Urine Glucose (UA) Negative (Normal) 12/07/24 19:21 Urine Ketones Trace (Negative) 12/07/24 19:21 Urine Blood 3+ (Negative) A 12/07/24 19:21 Urine Nitrate Negative (Negative) 12/07/24 19:21 Urine Bilirubin Negative (Negative) 12/07/24 19:21 Urine Urobilinogen 1.0 mg/dL (Negative) 12/07/24 19:21 Ur Leukocyte Esterase Trace (Negative) A 12/07/24 19:21 Urine RBC >100 /hpf (0-2) H 12/07/24 19:21 Urine WBC 0-5 /hpf (0-5) 12/07/24 19:21 Ur Squamous Epith Cells 0-5 /hpf (0-5) 12/07/24 19:21 Amorphous Sediment Not Reportable 12/07/24 19:21 Urine Bacteria 1+ /hpf (NONE) H 12/07/24 19:21 Hyaline Casts 0-4 /lpf H 12/07/24 19:21 All radiology interpretation(s) finalized by discharge Discharge Plan Discharge Patient Disposition: Home Clinical Impression: Abdominal pain Qualifiers: Abdominal location: left lower quadrant Qualified Code(s): R10.32 - Left lower quadrant pain Condition: Stable Prescriptions: New ketorolac 10 mg tablet 10 mg PO TID PRN (Reason: pain) Qty: 10 0RF ondansetron 4 mg tablet,disintegrating 4 mg PO Q6H PRN (Reason: nausea and vomiting) Qty: 14 0RF No Action (DME) Articulating AFO See Rx Instructions .Route .MEDSUPPLY Qty: 1 0RF Rx Instructions: EDGAR custom made by [employer] (DME) Diabetic Shoes See Rx Instructions .Route .MEDSUPPLY Qty: 1 0RF Rx Instructions: As directed, with 3 pairs inserts sertraline 100 mg tablet 200 mg PO .q am Qty: 60 3RF Rx Instructions: Take two tablets by mouth every morning (DME) OneTouch Verio test strips Strip See Rx Instructions .Route Qty: 100 0RF Rx Instructions: Check up to twice daily (DME) lancets [OneTouch UltraSoft Lancets] Misc See Rx Instructions .Route Qty: 100 0RF Rx Instructions: As directed (DME) blood-glucose meter [OneTouch Verio Flex Start] Kit See Rx Instructions .Route Qty: 1 0RF Rx Instructions: As directed divalproex [Depakote ER] 500 mg tablet extended release 24 hr 1,000 mg PO QAM (DME) custom molded functional orthotics See Rx Instructions .Route .MEDSUPPLY Qty: 1 0RF Rx Instructions: As directed atorvastatin 40 mg tablet See Rx Instructions .ROUTE .COMPLEX Qty: 90 0RF Dose Instruction: Take 1 tablet by mouth once daily Rx Instructions: Take 1 tablet by mouth once daily Discharge Orders: Discharge ED (Routine); Ordered 12/07/24 Ordered By: Enrrique Kendall Referrals: Branden Staples MD [Primary Care Provider] - 1-3 days Patient Instructions: Abdominal Pain (ED), Opioid Safety, Pain Management Activity Restrictions/Additional Instructions: Follow a liquid diet for the next 24 to 48 hours. As your pain improves, you may increase your diet. Medication as needed for symptoms. Take some [id number] stool softeners to relieve any constipation. Return for fever, vomiting liquids or medications, worsening pain despite treatment, other concerning symptoms. See your doctor next week Coding Level of Care Code ED Housing Case Manager for Sandra Chavira
--- NOTE | 2024-12-07 17:12 | CTR_ITS ---
PROCEDURE INFORMATION: Exam: CT Abdomen And Pelvis Without Contrast Exam date and time: 12/07/2024 5:40 PM Age: 39 years old Clinical indication: Abdominal pain; Flank; Left; Prior surgery; Surgery date: 6+ months; Surgery type: Lithotripsy, gastric sleeve; Additional info: Flank pain TECHNIQUE: Imaging protocol: Computed tomography of the abdomen and pelvis without contrast. Axial, coronal and sagittal reformatted images were created and reviewed. Radiation optimization: All CT scans at this facility use at least one of these dose optimization techniques: automated exposure control; mA and/or kV adjustment per patient size (includes targeted exams where dose is matched to clinical indication); or iterative reconstruction. COMPARISON: CT abdomen pelvis w con* [id number] 12/22/2021 4:57 PM RADIATION DOSE METRICS: Total DLP (mGy-cm): 967.45 FINDINGS: Lungs: Linear stranding and groundglass at the lung bases, likely due to atelectasis and/or scarring. Focal area of nodular pleural thickening in the right lower lobe. Diaphragm: Elevated left hemidiaphragm. Liver: Unremarkable. Gallbladder and biliary ducts: No radiodense gallstones. No biliary ductal dilatation. Pancreas: Unremarkable. Spleen: Unremarkable. Adrenal glands: Normal. No mass. Kidneys and ureters: No mass. No radiodense calculi. No hydronephrosis. Stomach and bowel: Status post gastric sleeve. Colonic diverticulosis without evidence of diverticulitis. No obstruction. No bowel wall thickening. No pneumatosis. Appendix: Normal. Intraperitoneal space: No free fluid. No organized fluid collection. No free air. Vasculature: Unremarkable. No aneurysm. Lymph nodes: No pathologically enlarged lymph nodes. Urinary bladder: Unremarkable as visualized. Reproductive: Unremarkable. Bones/joints: No acute osseous abnormality. Osteopenia. Degenerative changes. Soft tissues: Unremarkable. CT/CT kidney stone [id number] IMPRESSION: 1. Limited noncontrast examination without CT evidence of acute intra-abdominal or pelvic pathology. 2. Additional findings, as above.
[2024-12-07 17:19] LABS: Basophils # 0.1 10^3/uL (0.0-0.1); Basophils % 0.5 %; Eosinophils # 0.6 10^3/uL (0.0-0.8); Eosinophils % 5.4 %; Hematocrit 43.4 % (36-47); Lymphocytes # 2.9 10^3/uL (0.8-4.8); Lymphocytes % 26.6 %; Mean Corpuscular HGB Conc 31.1 g/dL (30-55); Mean Corpuscular Volume 80.5 fl (85-98); Monocytes # 0.7 10^3/uL (0.2-0.9); Monocytes % 6.3 %; Neutrophils # 6.61 10^3/uL (1.8-7.7); Neutrophils % 60.6 %; Nucleated Red Blood Cells % 0 %; Platelet Count 388 10^3/cmm (157-399); Red Blood Count 5.39 10^6/uL (3.85-5.65); Red Cell Distribution Width 16.4 % (12.1-15.1); White Blood Count 10.92 10^3/uL (3.29-11.43)
[2024-12-07 17:31] LABS: HCG, Serum Qual Negative (Negative)
[2024-12-07 17:39] LABS: Alanine Aminotransferase 21 U/L (0-33); Alkaline Phosphatase 60 U/L (35-105); Aspartate Amino Transferase 19 U/L (0-32); Blood Urea Nitrogen 14 mg/dL (6-20); Calcium 9.2 mg/dL (8.5-10.5); Carbon Dioxide 27 mmol/L (22-29); Chloride 99 mmol/L (98-107); Creatinine Clr Calc Pharmacy 113.6225; Globulin 3.3 g/dL (1.3-4.6); Glomerular Filtration Rate 92.2 mL/min (90-130); Glucose 91 mg/dL (65-115); Lipase 53 U/L (13-60); Osmolality Calculated 280 mOsm/kg (285-295); Sodium 135 mmol/L (136-145); Total Bilirubin 0.2 mg/dL (0.15-1.2); Total Protein 7.3 g/dL (6.6-8.7)
[2024-12-07 19:30] LABS: Bilirubin Urine Negative (Negative); Blood Urine 3+ (Negative); Glucose Urine UA Negative (Normal); Ketones Urine Trace (Negative); Leukocyte Esterase Urine Trace (Negative); Nitrate Urine Negative (Negative); Protein Urine 2+ (Negative); Specific Gravity, Urine 1.023 (1.005-1.030); Urine Appearance Cloudy (CLEAR); pH Urine 6.5 (5-7)
[2024-12-07 19:32] LABS: Add Urine Microscopic? YES; Bacteria Urine 1+ /hpf; Hyaline Casts Urine 0-4 /lpf; RBC Urine >100 /hpf (0-2); Squamous Epithelial Cell Urine 0-5 /hpf (0-5); WBC Urine 0-5 /hpf (0-5)
[2024-12-07 19:36] LABS: Add Urine Culture? Yes; Urine Color Red (Yellow)
[2024-12-07] MEDS: ketorolac 30 mg/mL INJ IVP (21:00)
[2024-12-07] MEDS: ondansetron 2 mg/ML SDV 2 mL 4 MG IVP (21:00)
== END 2024-12-07 21:11 | disposition home or self-care (01) ==
PROVIDERS: Emergency Medicine; Emergency Provider Emergency Medicine; PCP Family Medicine
DX: R10.32 Left lower quadrant pain (principal); Z87.891 Personal history of nicotine dependence; E11.9 Type 2 diabetes mellitus without complications; I10 Essential (primary) hypertension
CPT/HCPCS: 36415; 74176; 80053; 81001; 83690; 84703; 85025; 87086; 96374; 96375; 99285; J1885; J2405

== ENCOUNTER → 2025-01-08 11:29 | Outpatient (BNVA) | payer OTHER, SELFPAY ==
[2024-12-31 15:11] VITALS: BP 131/86; BMI 44.6
== END ==
PROVIDERS: PCP Family Medicine; Visit Provider Nurse Practitioner Psychiatric/Mental Health
DX: Z79.899 Other long term (current) drug therapy (principal)
CPT/HCPCS: 80061; 83036